=== PATIENT | male | born 1960 | race Caucasian/White ===

== ENCOUNTER 2016-12-30 02:43 | Emergency (ER) | payer OTHER ==
[2016-12-30 02:52] VITALS: BP 130/76; PULSE 66; RESP 18; TEMP 96.9
[2016-12-30] MEDS ORDERED: PROPARACAINE 0.5% OPHTH DROPS 15 ML BTL BOTH EYES STA (02:56)
[2016-12-30] MEDS ORDERED: CIPROFLOXACIN 0.3% OPHTH SOLN 2.5 ML BTL BOTH EYES STA (03:18)
--- NOTE | 2016-12-30 03:28 | ED ---
Eye Problem HPI - General Chief complaint: Eye Problems Stated complaint: eye problem Time Seen by Provider: 12/30/16 02:55 Source: patient, RN notes reviewed, old records reviewed Mode of arrival: ambulatory Limitations: no limitations - History of Present Illness Initial comments: 56-year-old male presents the ED chief complaint of left eye pain. Patient reports he woke up and felt like there is something stabbing in his eye. She reports that he normally wears glasses. Denies any pressure headache or pain behind the eye. She states the eye continues to water and feels like there is something in it. Patient reports that he just sleeps by himself, denies any trauma that he is aware to be eye.Patient denies any recent fever, chills, shortness of breath, chest pain, back pain, abdominal pain, nausea vomiting, numbness or tingling, dysuria or hematuria, constipation or diarrhea, headaches or visual changes, or any other current symptoms - Related Data Home Medications Medication Instructions Recorded Confirmed Multivitamins, Thera [Theragran] 1 each PO DAILY 08/04/14 12/30/16 Olmesartan [Benicar] 20 mg PO DAILY 02/10/16 12/30/16 Previous Rx's Medication Instructions Recorded Ciprofloxacin Ophth Soln [Cipro 1 drops LEFT EYE Q4HR #1 bottle 12/30/16 Ophth Soln] Allergies Allergy/AdvReac Type Severity Reaction Status Date / Time No Known Allergies Allergy Verified 08/05/14 08:47 Review of Systems ROS Statement: Those systems with pertinent positive or pertinent negative responses have been documented in the HPI. ROS Other: All systems not noted in ROS Statement are negative. Past Medical History Past Medical History: Hypertension History of Any Multi-Drug Resistant Organisms: None Reported Past Surgical History: No Surgical Hx Reported Past Psychological History: No Psychological Hx Reported Smoking Status: Former smoker Past Alcohol Use History: Daily Past Drug Use History: None Reported General Exam - General Exam Comments Initial Comments: Is an 56-year-old male. No acute distress. Limitations: no limitations General appearance: alert, in no apparent distress Head exam: Present: atraumatic, normocephalic, normal inspection Eye exam: Present: normal appearance, PERRL, EOMI, conjunctival injection (Left eye conjunctival injection.). Absent: scleral icterus, periorbital swelling ENT exam: Present: normal exam, mucous membranes moist Neck exam: Present: normal inspection. Absent: tenderness, meningismus, lymphadenopathy Respiratory exam: Present: normal lung sounds bilaterally. Absent: respiratory distress, wheezes, rales, rhonchi, stridor Cardiovascular Exam: Present: regular rate, normal rhythm, normal heart sounds. Absent: systolic murmur, diastolic murmur, rubs, gallop, clicks GI/Abdominal exam: Present: soft, normal bowel sounds. Absent: distended, tenderness, guarding, rebound, rigid Extremities exam: Present: normal inspection, full ROM, normal capillary refill. Absent: tenderness, pedal edema, joint swelling, calf tenderness Back exam: Present: normal inspection Neurological exam: Present: alert, oriented X3, CN II-XII intact Psychiatric exam: Present: normal affect, normal mood Skin exam: Present: warm, dry, intact, normal color. Absent: rash Course Vital Signs 12/30/16 02:49 Temperature 96.9 F L Pulse Rate 66 Respiratory 18 Rate Blood Pressure 130/76 O2 Sat by Pulse 96 Oximetry Medical Decision Making - Medical Decision Making This is a 56-year-old male presenting to emergency Department chief complaint of left eye pain for the past hour. He reports that he woke up due to the pain and feels like something is eye. Fluorescein eye exam was performed and shows evidence of a superficial corneal abrasion over the 9 to 3 o'clock position. Patient was informed of this. Visual acuity obtained and is 20/50 of the left eye 20/40 with the right eye. This is uncorrected. He reports he just kind of chronically poor vision in the left eye. 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 Patient was started on ciprofloxacin drops for the corneal abrasion. Discussed of the symptoms continue to worsen patient should follow-up with ophthalmology. Patient agrees to treatment plan will comply. Return parameters were discussed. Disposition Clinical Impression: Corneal abrasion Disposition: HOME SELF-CARE Condition: Good Instructions: Corneal Abrasion (ED) Additional Instructions: Patient advised to follow-up with primary care physician and ophthalmology if symptoms continue persist or worsen within the next 24 hours. Use the eyedrops every 4 hours in the eye. Return to the emergency department if any alarming signs or symptoms occur. Prescriptions: Ciprofloxacin Ophth Soln [Cipro Ophth Soln] 1 drops LEFT EYE Q4HR #1 bottle Referrals: Cash Villanueva III, MD [Primary Care Provider] - 1-2 days Vikki Meyer MD [STAFF PHYSICIAN] - 1-2 days Time of Disposition: 03:26
== END 2016-12-30 03:46 | disposition home or self-care (01) ==
LOC: EC 02:43
DX: S05.02XA Injury of conjunctiva and corneal abrasion without foreign body, left eye, initial encounter (principal); I10 Essential (primary) hypertension; Z87.891 Personal history of nicotine dependence; Z79.899 Other long term (current) drug therapy
CPT/HCPCS: 99283

== ENCOUNTER → 2017-03-03 | Outpatient (CLI) | payer OTHER ==
--- NOTE | 2017-03-03 12:52 | ECHOF ---
Referral Reason:R06.02 sob R07.9 chest pain MEASUREMENTS -------- HEIGHT: 188.0 cm WEIGHT: 115.7 kg BP: IVSd: 1.3 cm (0.6 - 1.1) LVIDd: 4.1 cm (3.9 - 5.3) LVPWd: 1.3 cm (0.6 - 1.1) IVSs: 1.5 cm LVIDs: 1.7 cm LVPWs: 1.5 cm Ao Diam: 3.2 cm (2.0 - 3.7) AV Cusp: 2.4 cm (1.5 - 2.6) LA Diam: 3.4 cm (2.7 - 3.8) MV EXCURSION: 10.933 mm (> 18.000) MV EF SLOPE: 38 mm/s (70 - 150) EPSS: 0.3 cm MV E Berry: 0.63 m/s MV DecT: 140 ms MV A Berry: 0.75 m/s MV E/A Ratio: 0.85 RAP: 5.00 mmHg RVSP: 23.14 mmHg FINDINGS -------- Sinus rhythm. This was a technically good study. The left ventricular size is normal. There is mild concentric left ventricular hypertrophy. Overall left ventricular systolic function is normal with, an EF between 55 - 60 %. The right ventricle is normal in size and function. The left atrium is normal in size. The right atrium is normal in size. The aortic valve is trileaflet, and appears structurally normal. No aortic stenosis or regurgitation. The mitral valve leaflets are mildly thickened. There is trace mitral regurgitation. Trace tricuspid regurgitation present. The right ventricular systolic pressure, as measured by Doppler, is 23.14mmHg. Pulmonic valve appears structurally normal. The aortic root size is normal. The pericardium is normal. CONCLUSIONS -------- 1. Sinus rhythm. 2. The mitral valve leaflets are mildly thickened. 3. There is trace mitral regurgitation. 4. Trace tricuspid regurgitation present. 5. The right ventricular systolic pressure, as measured by Doppler, is 23.14mmHg. 6. Pulmonic valve appears structurally normal. 7. The aortic root size is normal. 8. The pericardium is normal. 9. This was a technically good study. 10. The left ventricular size is normal. 11. There is mild concentric left ventricular hypertrophy. 12. Overall left ventricular systolic function is normal with, an EF between 55 - 60 %. 13. The right ventricle is normal in size and function. 14. The left atrium is normal in size. 15. The right atrium is normal in size. 16. The aortic valve is trileaflet, and appears structurally normal. No aortic stenosis or regurgitation. PRICING DIRECTOR: Dora Harris RDCS
--- NOTE | 2017-03-03 13:56 | EST ---
EXERCISE STRESS AGE: 56 SEX: M HT: 6'4" WT: 255 PROTOCOL: Fady Exercise Stress Test STAGE: IV DURATION OF EXERCISE: 10.14 HEART RATE REST: 74 BLOOD PRESSURE REST: 130/82 MAXIMUM HEART RATE ACHIEVED: 154 MAXIMUM BLOOD PRESSURE: 218/94 85% MPHR: 139 100% MPHR: 163 METS: 11.9 INDICATIONS: Chest pain. CLINICAL INFORMATION: STRESS DATA: Pretesting physical examination showed a heart rate of 74, pressure is 130/82 mmHg. Baseline EKG shows showed sinus mechanism. The patient exercised on the treadmill according to Fady protocol for a total of 10 minutes and 14 seconds and achieved 11.9 METs. Max heart rate was 154, which is 94% of maximum predicted heart rate. Maximum blood pressure was 218/94 mmHg. Clinically, the patient did not have any symptoms of chest pain or discomfort during the testing or in the recovery time. The EKG did not show any evidence of ST or T-wave abnormalities consistent with ischemia. CONCLUSION: 1. Excellent exercise capacity. 2. Normal EKG response to exercise. 3. Essentially normal stress test for this patient. MMODL / IJN: [id number] /
== END | disposition home or self-care (01) ==
LOC: RADNMMAIN 11:04
PROVIDERS: ATTEND Family Medicine
DX: I05.9 Rheumatic mitral valve disease, unspecified (principal)
CPT/HCPCS: 93017; 93306

== ENCOUNTER → 2018-08-03 | Outpatient (CLI) | payer OTHER ==
--- NOTE | 2018-08-04 08:35 | XR ---
EXAMINATION TYPE: XR chest 2V DATE OF EXAM: 08/03/2018 COMPARISON: NONE HISTORY: Dyspnea TECHNIQUE: Frontal and lateral views of the chest are obtained. FINDINGS: Prominent lung volume could be indicative of underlying COPD. Mild prominence of interstiti um is noted. There is no focal air space opacity, pleural effusion, or pneumothorax seen. The cardi ac silhouette size is within normal limits. The osseous structures are intact. There is some bronch ial wall thickening. IMPRESSION: Correlate for reactive airways disease, COPD, bronchitis. There may be a component of in terstitial lung disease.
== END | disposition home or self-care (01) ==
LOC: RADXRMAIN 17:40
PROVIDERS: ATTEND Nurse Practitioner Family
DX: R06.00 Dyspnea, unspecified (principal)
CPT/HCPCS: 71046

== ENCOUNTER → 2018-08-14 | Outpatient (CLI) | payer OTHER ==
--- NOTE | 2018-08-15 07:43 | ECHOF ---
Referral Reason:R06.00 Dyspnea MEASUREMENTS -------- HEIGHT: 190.5 cm WEIGHT: 122.5 kg BP: RVIDd: 3.5 cm (< 3.3) IVSd: 1.2 cm (0.6 - 1.1) LVIDd: 3.9 cm (3.9 - 5.3) LVPWd: 1.2 cm (0.6 - 1.1) IVSs: 1.4 cm LVIDs: 2.4 cm LVPWs: 1.4 cm LAESV Index (A-L): 20.90 ml/m Ao Diam: 3.5 cm (2.0 - 3.7) AV Cusp: 2.0 cm (1.5 - 2.6) LA Diam: 3.8 cm (2.7 - 3.8) MV EXCURSION: 15.488 mm (> 18.000) MV EF SLOPE: 43 mm/s (70 - 150) EPSS: 0.2 cm MV E Berry: 0.90 m/s MV DecT: 253 ms MV A Berry: 0.75 m/s MV E/A Ratio: 1.20 RAP: 5.00 mmHg RVSP: 30.57 mmHg FINDINGS -------- Sinus rhythm. This was a technically adequate study. The left ventricular size is normal. There is mild concentric left ventricular hypertrophy. Overa ll left ventricular systolic function is normal with, an EF between 55 - 60 %. The right ventricle is normal in size and function. Normal LA size by volume 22+/-6 ml/m2. The right atrium is normal in size. The aortic valve is trileaflet and appears structurally normal. There is no evidence of aortic regu rgitation. There is no evidence of aortic stenosis. The mitral valve leaflets are mildly thickened. There is trace mitral regurgitation. Mild tricuspid regurgitation present. Right ventricular systolic pressure is normal at < 35 mmHg. There is no evidence of pulmonary hypertension. Trace/mild (physiologic) pulmonic regurgitation. The aortic root size is normal. The ascending aorta is dilated measuring up to 3.8 cm. Normal inferior vena cava with normal inspiratory collapse consistent with estimated right atrial pre ssure of 5 mmHg. There is no pericardial effusion. CONCLUSIONS -------- 1. Sinus rhythm. 2. This was a technically adequate study. 3. The left ventricular size is normal. 4. There is mild concentric left ventricular hypertrophy. 5. Overall left ventricular systolic function is normal with, an EF between 55 - 60 %. 6. Normal LA size by volume 22+/-6 ml/m2. 7. The aortic valve is trileaflet and appears structurally normal. 8. The mitral valve leaflets are mildly thickened. 9. There is trace mitral regurgitation. 10. Mild tricuspid regurgitation present. 11. Right ventricular systolic pressure is normal at < 35 mmHg. 12. There is no evidence of pulmonary hypertension. 13. Trace/mild (physiologic) pulmonic regurgitation. 14. The aortic root size is normal. 15. The ascending aorta is dilated measuring up to 3.8 cm. 16. There is no pericardial effusion. PRINCIPLE SOFTWARE ENGINEER: Esteban Connelly RDCS
== END | disposition home or self-care (01) ==
LOC: RADECHMAIN 15:18
PROVIDERS: ATTEND Family Medicine
DX: I07.1 Rheumatic tricuspid insufficiency (principal)
CPT/HCPCS: 93306

== ENCOUNTER → 2018-09-11 | Outpatient (CLI) | payer OTHER ==
--- NOTE | 2018-09-12 11:51 | US ---
EXAMINATION TYPE: US thyroid st tissue head/neck DATE OF EXAM: 09/11/2018 COMPARISON: NONE CLINICAL HISTORY: E04.9 GOITER. Goiter, difficulty swallowing GLAND SIZE: Right Lobe: 6.4 x 2.0 x 2.4 cm Overall Parenchyma: heterogenous Left Lobe: 5.8 x 2.0 x 2.3 cm Overall Parenchyma: heterogeneous Isthmus Thickness: 0.4 cm NODULES RIGHT: # of nodules measured on right: 0 LEFT: # of nodules measured on left: 0 ISTHMUS: # of nodules measured in the isthmus: 0 Bilateral neck scanned, no evidence of lymphadenopathy. Enlarged, heterogeneous thyroid gland with no evidence of discrete nodule at this time IMPRESSION: Thyroid size as described. Correlate for possible thyroiditis.
== END | disposition home or self-care (01) ==
LOC: RADUSWWP 16:38
PROVIDERS: ATTEND Family Medicine
DX: E04.9 Nontoxic goiter, unspecified (principal)
CPT/HCPCS: 76536

== ENCOUNTER → 2018-09-22 | Outpatient (CLI) | payer OTHER | END | disposition home or self-care (01) | LOC: CPPFTMAIN 11:09 | PROVIDERS: ATTEND Family Medicine | DX: R06.00 Dyspnea, unspecified (principal) | CPT/HCPCS: 94060; 94726; 94729 ==

== ENCOUNTER 2018-09-27 18:38 | Observation (INO) | payer OTHER ==
[2018-09-27] MEDS ORDERED: NITROGLYCERIN SL TABS 0.4 MG TAB SUBLINGUAL STA ×3 (19:00)
[2018-09-27] MEDS ORDERED: ASPIRIN 81 MG PO STA ×2 (19:00→19:30)
--- NOTE | 2018-09-27 19:04 | ED ---
General Adult HPI - General Chief complaint: Chest Pain Stated complaint: chest tightness/syncope Time Seen by Provider: 09/27/18 18:47 Source: patient, RN notes reviewed Mode of arrival: wheelchair Limitations: no limitations - History of Present Illness Initial comments: Patient is a pleasant 58-year-old male presenting to the emergency Department with chest discomfort. Patient did have some mild discomfort this morning while chopping wood. Discomfort seemed to improve. Discomfort returned prior to arrival. Patient states discomfort was 7/10 however has improved to around 5/10. Patient did have a syncopal episode for a couple of seconds prior to arrival. No history of similar symptoms previously. No radiation of discomfort. Patient has felt short of breath since May. No nausea or diaphoresis. Patient did feel lightheaded. - Related Data Home Medications Medication Instructions Recorded Confirmed Albuterol Inhaler [Ventolin Hfa 2 puff INHALATION RT-TID PRN 09/27/18 09/27/18 Inhaler] Budesonide/Formoterol Fumarate 2 puff INHALATION RT-BID 09/27/18 09/27/18 [Symbicort 160-4.5 Mcg Inhaler] Montelukast [Singulair] 10 mg PO HS 09/27/18 09/27/18 Olmesartan/Hydrochlorothiazide 1 tab PO DAILY 09/27/18 09/27/18 [Olmesartan-Hctz 40-25 mg Tab] amLODIPine [Norvasc] 10 mg PO DAILY 09/27/18 09/27/18 Allergies Allergy/AdvReac Type Severity Reaction Status Date / Time No Known Allergies Allergy Verified 09/27/18 19:05 Review of Systems ROS Statement: Those systems with pertinent positive or pertinent negative responses have been documented in the HPI. ROS Other: All systems not noted in ROS Statement are negative. Constitutional: Denies: fever Eyes: Denies: eye pain ENT: Denies: ear pain Respiratory: Reports: as per HPI Cardiovascular: Reports: as per HPI Endocrine: Denies: fatigue Gastrointestinal: Denies: abdominal pain Genitourinary: Denies: dysuria Musculoskeletal: Denies: back pain Skin: Denies: rash Neurological: Denies: weakness Past Medical History Past Medical History: Hypertension History of Any Multi-Drug Resistant Organisms: None Reported Past Surgical History: No Surgical Hx Reported Past Psychological History: No Psychological Hx Reported Smoking Status: Former smoker Past Alcohol Use History: Daily Past Drug Use History: None Reported General Exam Limitations: no limitations General appearance: alert, in no apparent distress Head exam: Present: atraumatic Eye exam: Present: normal appearance, PERRL ENT exam: Present: normal oropharynx Neck exam: Present: normal inspection Respiratory exam: Present: normal lung sounds bilaterally. Absent: chest wall tenderness Cardiovascular Exam: Present: regular rate, normal rhythm Expanded Peripheral pulses: 2+: Radial (R), Radial (L), Posterior Tibialis (R), Posterior Tibialis (L), Dorsalis Pedis (R), Dorsalis Pedis (L) GI/Abdominal exam: Present: soft. Absent: tenderness Extremities exam: Present: normal inspection. Absent: pedal edema, calf tenderness Neurological exam: Present: alert, oriented X3, CN II-XII intact. Absent: motor sensory deficit Psychiatric exam: Present: normal affect, normal mood Skin exam: Present: normal color Course Vital Signs 09/27/18 09/27/18 18:41 20:19 Temperature 98.6 F Pulse Rate 78 72 Respiratory 16 19 Rate Blood Pressure 147/85 121/75 O2 Sat by Pulse 97 98 Oximetry EKG Findings - EKG Comments: EKG Findings:: Sinus rhythm at 78. CA 170. QRS 96. QT 372. QTC 424. Normal axis. Normal QRS. No acute ST change. Medical Decision Making - Medical Decision Making Patient reevaluated and resting comfortably in bed. Discomfort is mild at this point rated 2/10. Patient family updated on results and plan. Case was discu ssed in detail with Dr. Napier, covering for Dr. Villanueva, who will admit. - Lab Data Result diagrams: 09/27/18 19:03 09/27/18 19:03 Lab Results 09/27/18 09/27/18 09/27/18 Range/Units 19:03 19:03 19:03 WBC 5.8 (3.8-10.6) k/uL RBC 4.34 (4.30-5.90) m/uL Hgb 14.0 (13.0-17.5) gm/dL Hct 41.7 (39.0-53.0) % MCV 96.1 (80.0-100.0) fL MCH 32.2 (25.0-35.0) pg MCHC 33.4 (31.0-37.0) g/dL RDW 12.4 (11.5-15.5) % Plt Count 168 (150-450) k/uL Neutrophils % 67 % Lymphocytes % 23 % Monocytes % 4 % Eosinophils % 3 % Basophils % 0 % Neutrophils # 3.9 (1.3-7.7) k/uL Lymphocytes # 1.4 (1.0-4.8) k/uL Monocytes # 0.3 (0-1.0) k/uL Eosinophils # 0.2 (0-0.7) k/uL Basophils # 0.0 (0-0.2) k/uL PT 9.7 (9.0-12.0) sec INR 0.9 (<1.2) APTT 24.8 (22.0-30.0) sec D-Dimer 0.47 (<0.60) mg/L FEU Sodium 136 L (137-145) mmol/L Potassium 3.9 (3.5-5.1) mmol/L Chloride 104 (98-107) mmol/L Carbon Dioxide 19 L (22-30) mmol/L Anion Gap 13 mmol/L BUN 18 (9-20) mg/dL Creatinine 0.98 (0.66-1.25) mg/dL Est GFR (CKD-EPI)AfAm >90 (>60 ml/min/1.73 sqM) Est GFR (CKD-EPI)NonAf 85 (>60 ml/min/1.73 sqM) Glucose 122 H (74-99) mg/dL Calcium 9.4 (8.4-10.2) mg/dL Magnesium 2.0 (1.6-2.3) mg/dL Total Bilirubin 0.5 (0.2-1.3) mg/dL AST 43 (17-59) U/L ALT 47 (21-72) U/L Alkaline Phosphatase 67 (38-126) U/L Troponin I (0.000-0.034) ng/mL NT-Pro-B Natriuret Pep pg/mL Total Protein 7.2 (6.3-8.2) g/dL Albumin 4.5 (3.5-5.0) g/dL 09/27/18 09/27/18 Range/Units 19:03 19:03 WBC (3.8-10.6) k/uL RBC (4.30-5.90) m/uL Hgb (13.0-17.5) gm/dL Hct (39.0-53.0) % MCV (80.0-100.0) fL MCH (25.0-35.0) pg MCHC (31.0-37.0) g/dL RDW (11.5-15.5) % Plt Count (150-450) k/uL Neutrophils % % Lymphocytes % % Monocytes % % Eosinophils % % Basophils % % Neutrophils # (1.3-7.7) k/uL Lymphocytes # (1.0-4.8) k/uL Monocytes # (0-1.0) k/uL Eosinophils # (0-0.7) k/uL Basophils # (0-0.2) k/uL PT (9.0-12.0) sec INR (<1.2) APTT (22.0-30.0) sec D-Dimer (<0.60) mg/L FEU Sodium (137-145) mmol/L Potassium (3.5-5.1) mmol/L Chloride (98-107) mmol/L Carbon Dioxide (22-30) mmol/L Anion Gap mmol/L BUN (9-20) mg/dL Creatinine (0.66-1.25) mg/dL Est GFR (CKD-EPI)AfAm (>60 ml/min/1.73 sqM) Est GFR (CKD-EPI)NonAf (>60 ml/min/1.73 sqM) Glucose (74-99) mg/dL Calcium (8.4-10.2) mg/dL Magnesium (1.6-2.3) mg/dL Total Bilirubin (0.2-1.3) mg/dL AST (17-59) U/L ALT (21-72) U/L Alkaline Phosphatase (38-126) U/L Troponin I <0.012 (0.000-0.034) ng/mL NT-Pro-B Natriuret Pep 109 pg/mL Total Protein (6.3-8.2) g/dL Albumin (3.5-5.0) g/dL - Radiology Data Radiology results: image reviewed (Chest x-ray shows no acute process) Disposition Clinical Impression: Chest pain Disposition: ADMITTED IP TO THIS [facility] Is patient prescribed a controlled substance at d/c from ED?: No Referrals: Cash Villanueva III, MD [Primary Care Provider] - 1-2 days Decision Time: 20:59
[2018-09-27 19:14] LABS: Basophils % (A) 0 %; Eosinophils # (A) 0.2 k/uL (0-0.7); Eosinophils % (A) 3 %; HCT 41.7 % (39.0-53.0); Lymphocytes # (A) 1.4 k/uL (1.0-4.8); Lymphocytes % (A) 23 %; MCH 32.2 pg (25.0-35.0); MCHC 33.4 g/dL (31.0-37.0); MCV 96.1 fL (80.0-100.0); Monocytes # (A) 0.3 k/uL (0-1.0); Monocytes % (A) 4 %; Neutrophils # (A) 3.9 k/uL (1.3-7.7); Neutrophils % (A) 67 %; Platelet Count 168 k/uL (150-450); RBC 4.34 m/uL (4.30-5.90); RDW 12.4 % (11.5-15.5); WBC 5.8 k/uL (3.8-10.6)
[2018-09-27 19:23] LABS: ALT 47 U/L (21-72); AST 43 U/L (17-59); Albumin 4.5 g/dL (3.5-5.0); Alkaline Phosphatase 67 U/L (38-126); Anion Gap 13 mmol/L; Blood Urea Nitrogen 18 mg/dL (9-20); Calcium 9.4 mg/dL (8.4-10.2); Carbon Dioxide 19 mmol/L (22-30); Chloride 104 mmol/L (98-107); Glucose 122 mg/dL (74-99); Potassium 3.9 mmol/L (3.5-5.1); Sodium 136 mmol/L (137-145); Total Bilirubin 0.5 mg/dL (0.2-1.3); Total Protein 7.2 g/dL (6.3-8.2)
[2018-09-27 19:27] LABS: D-Dimer 0.47 mg/L FEU (<0.60); INR 0.9 (<1.2); Partial Thromboplastin Time 24.8 sec (22.0-30.0); Prothrombin Time 9.7 sec (9.0-12.0)
--- NOTE | 2018-09-27 19:35 | XR ---
EXAMINATION TYPE: XR chest 2V DATE OF EXAM: 09/27/2018 COMPARISON: 08/03/2018 HISTORY: Chest pain TECHNIQUE: Frontal and lateral views of the chest are obtained. FINDINGS: Heart and mediastinum are normal. Lungs are clear. Diaphragm is normal. Bony thorax appear s normal. IMPRESSION: Normal chest. No change.
[2018-09-27] MEDS ORDERED: ALBUTEROL NEBULIZED 2.5 MG/3 ML INHALATION PRN (20:54)
[2018-09-27] MEDS ORDERED: THIAMINE 100 MG/ML 2 ML VIAL IM STA (20:55)
[2018-09-27] MEDS ORDERED: LORazepam 2 MG/ML INJ IV PRN ×3 (20:55)
[2018-09-27] MEDS ORDERED: ACETAMINOPHEN TAB 500 MG TAB PO PRN (20:56)
[2018-09-27] MEDS ORDERED: HYDROcodone/APAP 5-325MG 1 EACH TAB PO PRN (20:56)
[2018-09-27] MEDS ORDERED: TEMAZEPAM 15 MG CAP PO PRN (20:56)
[2018-09-27] MEDS ORDERED: HYDROmorphone 0.5 MG/0.5 ML SYRINGE IVP PRN (20:57)
[2018-09-27] MEDS ORDERED: MONTELUKAST 10 MG TAB PO SCH (21:00)
[2018-09-27] MEDS ORDERED: NITROGLYCERIN SL TABS 0.4 MG TAB SUBLINGUAL PRN (21:00)
[2018-09-27] MEDS: PANTOPRAZOLE 40 MG/10 ML VIAL IVP SCH (21:34)
--- NOTE | 2018-09-28 00:03 | HP ---
HISTORY AND PHYSICAL CHIEF COMPLAINT: Chest pain. HISTORY OF PRESENT ILLNESS: This is 58-year-old gentleman with a past medical history of multiple medical problems including hypertension, history of nicotine dependence, history of EtOH being followed by Dr. Villanueva in the outpatient setting, presented with chest pain. The pain was felt in the left side of the anterior chest wall, more like a heaviness, felt initially while chopping wood in the morning and initially subsequently the symptoms seemed to be improving, but because of his symptoms, the patient came to [facility] and was admitted to the hospital for further evaluation and treatment. The patient also had a syncopal episode also. There is no history of radiation of pain or other associated no symptoms. There is no history of fever, rigors or chills. No history of headache. Loss of consciousness or seizures. PAST MEDICAL HISTORY: Hypertension, history of nicotine dependence. It was also noted the patient took over 6 beers yesterday. HOME MEDICATIONS: 1. Norvasc 10 mg daily. 2. Singulair 10 mg q.h.s. 3. Symbicort 160/4.5 two puffs b.i.d. 4. Ventolin HFA 2 puffs every t.i.d. 5. Olmesartan Hydrochlorothiazide 40/25 p.o. daily. ALLERGIES: None. FAMILY HISTORY: No history of heart disease or strokes in the family. SOCIAL HISTORY: Previous history of smoking. Current alcohol use. Intake as mentioned earlier. REVIEW OF SYSTEMS: ENT: No diminished vision. No diminished hearing. CARDIOVASCULAR: As mentioned earlier. RESPIRATORY: As mentioned earlier. GI no nausea or vomiting. no dysuria. NERVOUS SYSTEM: No numbness or weakness. ALLERGY/IMMUNOLOGY: No asthma or hayfever. MUSCULOSKELETAL as mentioned earlier. HEMATOLOGY/ONCOLOGY: No history of anemia. ENDOCRINE: No history of diabetes or hypothyroidism. CONSTITUTIONAL: As mentioned earlier. DERMATOLOGY: Negative. RHEUMATOLOGY: Negative. PSYCHIATRY: As mentioned earlier. PHYSICAL EXAMINATION: The patient is alert and oriented times three. Pulse 72, blood pressure 121/75, respiration 19, temperature 98.6, pulse ox 98% on 2 L. HEENT is conjunctivae normal. Oral mucosa moist. NECK is no jugular venous distention. No carotid bruit. No lymph node enlargement. CARDIOVASCULAR: S1, S2 muffled. RESPIRATORY: Breath sounds diminished in the bases. A few scattered rhonchi and crackles. ABDOMEN: Soft, nontender. No mass. Legs no edema. No swelling. NERVOUS SYSTEM: Higher functions as mentioned moves all 4 limbs. No focal motor or sensory deficits. SKIN: No ulcer, rash or bleeding. JOINTS: No active deforming arthropathy. LABS: CBC within normal limits. Sodium 133. ASSESSMENT: 1. Chest pain possible unstable angina, possible gastroesophageal reflux disease. 2. Hyponatremia. 3. History of nicotine dependence. h/o syncope vaso vagal 4. History of ETOH. 5. Hypertension. Labile. 6. Remote history of nicotine dependence. RECOMMENDATIONS AND DISCUSSION: This 58-year-old gentleman who presented with multiple medical issues, we will monitor the patient closely. Continue the current medications, management and symptomatic treatment. We will initiate unstable angina protocol, rule out myocardial infarction, cardiology consultation. Otherwise, [place] protocol. Alcohol withdrawal symptoms. Look for alcohol withdrawal symptoms. Prognosis guarded because of multiple complex medical issues. A copy of dictation forwarded to Dr. Villanueva who is the primary physician. Patient also had apparently a recent stress test. The patient unable to recollect the exact date. We will continue to monitor. Further recommendations to follow. MMODL / IJN: [id number] / MTDD
[2018-09-28] MEDS: NITROGLYCERIN OINT 1 INCH/GM PACKET TOPICAL SCH ×2 (01:07→06:06)
[2018-09-28 07:57] LABS: Basophils % (A) 1 %; Eosinophils # (A) 0.1 k/uL (0-0.7); Eosinophils % (A) 3 %; HCT 40.6 % (39.0-53.0); HGB 14.2 gm/dL (13.0-17.5); Lymphocytes # (A) 1.5 k/uL (1.0-4.8); Lymphocytes % (A) 34 %; MCH 33.9 pg (25.0-35.0); Mean Platelet Volume 8.8; Monocytes # (A) 0.3 k/uL (0-1.0); Monocytes % (A) 7 %; Neutrophils # (A) 2.3 k/uL (1.3-7.7); Neutrophils % (A) 53 %; Platelet Count 142 k/uL (150-450); RBC 4.19 m/uL (4.30-5.90); RDW 13.4 % (11.5-15.5); WBC 4.3 k/uL (3.8-10.6)
[2018-09-28] MEDS ORDERED: SYMBICORT 160-4.5 MCG INHALER INHALATION SCH (08:00)
[2018-09-28 08:08] LABS: Anion Gap 6 mmol/L; Blood Urea Nitrogen 17 mg/dL (9-20); Calcium 9.2 mg/dL (8.4-10.2); Carbon Dioxide 25 mmol/L (22-30); Chloride 106 mmol/L (98-107); Cholesterol 206 mg/dL (<200); Glucose 113 mg/dL (74-99); HDL Cholesterol 76 mg/dL (40-60); LDL Cholesterol,Calculated 107 mg/dL (0-99); Sodium 137 mmol/L (137-145); Triglycerides 115 mg/dL (<150)
[2018-09-28 08:20] VITALS: BMI 33.1
[2018-09-28] MEDS ORDERED: ASPIRIN 325 MG TAB PO SCH (09:00)
[2018-09-28] MEDS ORDERED: HYDROCHLOROTHIAZIDE 25 MG TAB PO SCH (09:00)
[2018-09-28] MEDS ORDERED: amLODIPine 10 MG TAB PO SCH (09:00)
[2018-09-28] MEDS ORDERED: LOSARTAN 50 MG TAB PO SCH (09:00)
--- NOTE | 2018-09-28 10:58 | P.CRDCN ---
History of Present Illness History of present illness: This is a pleasant 58-year-old male past medical history significant for hypertension, obstructive sleep apnea, enlarged thyroid was recently discovered, former nicotine dependence and daily alcohol intake. He denies history of dyslipidemia, coronary artery disease or diabetes mellitus. 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 We have been asked to see him in consultation secondary to chest discomfort and a syncopal episode. He states yesterday he was sitting on the couch and stood up to walk around. He immediately felt the room spinning and had to brace himself on the wall. The next thing he remembers he was waking up on the ground. There was positive loss of consciousness for less than a minute. This was witnessed by family and there was no seizure like activity or loss of bowel/bladder control. Chest prior to passing out he does describe an odd feeling in his chest in the left precordial region. However when he woke up all his symptoms of dizziness and chest pain had subsided. There was no associated nausea, vomiting, palpitations or shortness of breath. Immediately after this happened his blood pressure was checked and he states it was extremely low. He has been up ambulating with no further symptoms of dizziness or chest discomfort. He states since about May of this year he has been having very vague symptoms for which she is und ergoing outpatient workup. Just last week he underwent pulmonary function testing to assess for possible COPD, he had an echocardiogram in July 2018 which revealed preserved LV systolic function with ejection fraction 55-60%. This all started around May when he became acutely short of breath and was extremely hypertensive. His antihypertensive regimen has been adjusted and his blood pressure seem under much better control. EKG reveals sinus mechanism with no acute ST or T wave abnormalities noted. Chest x-ray is negative for an acute cardiopulmonary process. Laboratory data reviewed, WBC 4.3, hemoglobin 14.2, platelets 142, d-dimer 0.47, sodium 137, potassium 4.0, creatinine 1.03, magnesium 2.0, cardiac enzymes negative 3, and T proBNP 109, LDL 107 and HDL 76. Current cardiac medications include almost certain/HCTZ 40/25 mg daily and amlodipine 10 mg daily. He underwent a Fady protocol exercise stress test in 2016 which revealed excellent exercise capacity and no evidence of stress-induced ischemia. At the time of my exam: CONSTITUTIONAL: Denies fever. Denies chills. EYES: Denies blurred vision. Denies vision changes. Denies eye pain. EARS, NOSE, MOUTH & THROAT: Denies headache. Denies sore throat. Denies ear pain. CARDIOVASCULAR: Denies chest pain. Denies shortness of breath. Denies orthopnea. Denies PND. Denies palpitations. RESPIRATORY: Denies cough. GASTROINTESTINAL: Denies abdominal pain. Denies diarrhea. Denies constipation. Denies nausea. Denies vomiting. MUSCULOSKELETAL: Denies myalgias. INTEGUMENTARY: Denies pruitis. Denies rash. NEUROLOGIC: Denies numbness. Denies tingling. Denies weakness. PSYCHIATRIC: Denies anxiety. Denies depression. ENDOCRINE: Denies fatigue. Denies weight change. Denies polydipsia. Denies polyurina. GENITOURINARY: Denies burning, hematuria or urgency with micturation. HEMATOLOGIC: Denies history of anemia. Denies bleeding. Blood pressure 122/70 heart rate 71 afebrile maintaining oxygen saturation on room air GENERAL: This is a 58-year-old male in no apparent distress at the time of my examination. HEENT: Head is atraumatic, normocephalic. Pupils are equal, round. Sclerae anicteric. Conjunctivae are clear. Mucous membranes of the mouth are moist. Neck is supple. There is no jugular venous distention. No carotid bruit is heard. LUNGS: Clear to auscultation no wheezes, rales or rhonchi. No chest wall ten derness is noted on palpation or with deep breathing. HEART: Regular rate and rhythm without murmurs, rubs or gallops. S1 and S2 heard. ABDOMEN: Soft, nontender. Bowel sounds are heard. No organomegaly noted. EXTREMITIES: No evidence of peripheral edema and no calf tenderness noted. VASCULAR: Radial and dorsalis pedis pulses palpated, no evidence of clubbing. NEUROLOGIC: Patient is awake, alert and oriented x3. ASSESSMENT Chest pain associated with syncope. An acute event has been ruled out. No evidence of arrhythmia noted on telemetry tracings. Syncopal episode, possible related to a vasovagal spell. The patient states his blood pressure was low immediately after this happened however there is no clear documentation of this in the medical record. Hypertension Former nicotine dependence Chronic daily alcohol intake PLAN Recent echocardiogram has been reviewed. Perform exercise stress test to assess for ischemic changes or an acute arrhythmia with exertion. Cessation of excessive alcohol intake recommended. Initiate on moderate intensity statin in the form of atorvastatin 40 mg daily. If stress test is normal we recommend application of outpatient event monitor. Thank you kindly for this consultation. Nurse Practitioner note has been reviewed, I agree with a documented findings and plan of care. Patient was seen and examined. Past Medical History Past Medical History: Chest Pain / Angina, Eye Disorder, Hypertension, Respira tory Disorder, Sleep Apnea/CPAP/BIPAP, Syncope, Thyroid Disorder Additional Past Medical History / Comment(s): near sighted, unkown respiratory disorder - recent testing but unknown results, apnea with cpap, enlarged thyroid History of Any Multi-Drug Resistant Organisms: None Reported Past Surgical History: No Surgical Hx Reported Additional Past Surgical History / Comment(s): finger sx - tip cut off, foot sx alcocer neuroma Past Anesthesia/Blood Transfusion Reactions: No Reported Reaction Past Psychological History: No Psychological Hx Reported Smoking Status: Former smoker Past Alcohol Use History: Daily Past Drug Use History: None Reported - Past Family History Father Family Medical History: CVA/TIA Sister(s) Family Medical History: Cancer Medications and Allergies Home Medications Medication Instructions Recorded Confirmed Type Albuterol Inhaler [Ventolin Hfa 2 puff INHALATION RT-TID PRN 09/27/18 09/27/18 History Inhaler] Budesonide/Formoterol Fumarate 2 puff INHALATION RT-BID 09/27/18 09/27/18 History [Symbicort 160-4.5 Mcg Inhaler] Montelukast [Singulair] 10 mg PO HS 09/27/18 09/27/18 History Olmesartan/Hydrochlorothiazide 1 tab PO DAILY 09/27/18 09/27/18 History [Olmesartan-Hctz 40-25 mg Tab] amLODIPine [Norvasc] 10 mg PO DAILY 09/27/18 09/27/18 History Allergies Allergy/AdvReac Type Severity Reaction Status Date / Time No Known Allergies Allergy Verified 09/27/18 19:05 Physical Exam Vitals: Vital Signs Temp Pulse Resp BP Pulse Ox 09/28/18 07:50 97.9 F 71 18 122/70 98 09/28/18 07:31 51 L 09/28/18 07:21 52 L 97 09/28/18 06:00 98.7 F 65 17 108/72 97 09/28/18 05:00 57 L 19 112/86 09/28/18 04:00 56 L 16 93/52 09/28/18 03:00 60 19 118/73 09/28/18 02:00 58 L 120/72 09/28/18 01:00 58 L 18 100/57 97 09/28/18 00:00 60 19 99/53 09/27/18 23:00 66 18 108/73 09/27/18 22:00 65 20 114/73 09/27/18 21:00 71 18 116/74 09/27/18 20:19 72 19 121/75 98 09/27/18 20:00 78 20 103/67 09/27/18 19:00 21 129/82 95 09/27/18 18:57 129/82 09/27/18 18:41 98.6 F 78 16 147/85 97 Intake and Output 09/27/18 09/28/18 09/28/18 22:59 06:59 14:59 Other: Voiding Method Toilet Weight 120.202 kg Results 09/28/18 07:42 09/28/18 07:42 Cardiac Enzymes 09/27/18 09/27/18 09/28/18 Range/Units 19:03 19:03 01:25 AST 43 (17-59) U/L Troponin I <0.012 <0.012 (0.000-0.034) ng/mL 09/28/18 Range/Units 07:42 AST (17-59) U/L Troponin I <0.012 (0.000-0.034) ng/mL Coagulation 09/27/18 Range/Units 19:03 PT 9.7 (9.0-12.0) sec APTT 24.8 (22.0-30.0) sec Lipids 09/28/18 Range/Units 07:42 Triglycerides 115 (<150) mg/dL Cholesterol 206 H (<200) mg/dL HDL Cholesterol 76 H (40-60) mg/dL CBC 09/27/18 09/28/18 Range/Units 19:03 07:42 WBC 5.8 4.3 (3.8-10.6) k/uL RBC 4.34 4.19 L (4.30-5.90) m/uL Hgb 14.0 14.2 (13.0-17.5) gm/dL Hct 41.7 40.6 (39.0-53.0) % Plt Count 168 142 L (150-450) k/uL Comprehensive Metabolic Panel 09/27/18 09/28/18 Range/Units 19:03 07:42 Sodium 136 L 137 (137-145) mmol/L Potassium 3.9 4.0 (3.5-5.1) mmol/L Chloride 104 106 (98-107) mmol/L Carbon Dioxide 19 L 25 (22-30) mmol/L BUN 18 17 (9-20) mg/dL Creatinine 0.98 1.03 (0.66-1.25) mg/dL Glucose 122 H 113 H (74-99) mg/dL Calcium 9.4 9.2 (8.4-10.2) mg/dL AST 43 (17-59) U/L ALT 47 (21-72) U/L Alkaline Phosphatase 67 (38-126) U/L Total Protein 7.2 (6.3-8.2) g/dL Albumin 4.5 (3.5-5.0) g/dL Current Medications Generic Name Dose Route Start Last Admin Trade Name Freq PRN Reason Stop Dose Admin Acetaminophen 500 mg 09/27/18 20:56 Tylenol Tab PO Q6HR PRN Fever and/ or Pain Hydrocodone Bitart/Acetaminophen 1 each 09/27/18 20:56 Alford 5-325 PO Q6HR PRN Pain Albuterol Sulfate 2.5 mg 09/27/18 20:54 09/28/18 07:19 Ventolin Nebulized INHALATION 2.5 mg RT-TID PRN Administration Shortness Of Breath Amlodipine Besylate 10 mg 09/28/18 09:00 Norvasc PO DAILY [facility] Aspirin 325 mg 09/28/18 09:00 Aspirin PO DAILY [facility] Budesonide/Formoterol Fumarate 2 puff 09/28/18 08:00 09/28/18 07:19 Symbicort 160-4.5 Mcg Inhaler INHALATION 2 puff RT-BID JUNIOR Administration Folic Acid 1 mg 09/28/18 12:00 Folic Acid PO DAILY@1200 [facility] Hydrochlorothiazide 25 mg 09/28/18 09:00 Hydrodiuril PO DAILY [facility] Hydromorphone HCl 0.5 mg 09/27/18 20:57 Dilaudid IVP Q6HR PRN Severe Pain Lorazepam 1 mg 09/27/18 20:55 Ativan IV Q2HR PRN CIWA 8 or 9 Lorazepam 1 mg 09/27/18 20:55 Ativan IV Q1HR PRN CIWA 10 to 15 Lorazepam 2 mg 09/27/18 20:55 Ativan IV 09/29/18 20:56 Q10M PRN CIWA 16 or higher Losartan Potassium 150 mg 09/28/18 09:00 Cozaar PO DAILY [facility] Montelukast Sodium 10 mg 09/27/18 21:00 09/27/18 21:35 Singulair PO 10 mg HS JUNIOR Administration Multivitamins 1 each 09/28/18 12:00 Theragran PO DAILY@1200 [facility] Nitroglycerin 1 inch 09/28/18 00:00 09/28/18 06:06 Nitro-Bid Oint TOPICAL 1 inch Q6HR JUNIOR Administration Nitroglycerin 0.4 mg 09/27/18 21:00 Nitrostat SUBLINGUAL Q5M PRN Chest Pain Pantoprazole Sodium 40 mg 09/27/18 21:00 09/27/18 21:34 Protonix IVP 40 mg DAILY JUNIOR Administration Sodium Chloride 10 ml 09/27/18 21:00 09/27/18 21:38 Saline Flush IV 10 ml BID JUNIOR Administration Temazepam 15 mg 09/27/18 20:56 Restoril PO HS PRN Insomnia Intake and Output 09/27/18 09/28/18 09/28/18 22:59 06:59 14:59 Other: Voiding Method Toilet Weight 120.202 kg 09/28/18 07:42 09/28/18 07:42
[2018-09-28] MEDS ORDERED: ATORVASTATIN 40 MG TAB PO SCH (11:00)
[2018-09-28] MEDS ORDERED: MULTIVITAMINS, THERA 1 EACH TAB PO SCH (12:00)
[2018-09-28] MEDS ORDERED: FOLIC ACID 1 MG TAB PO SCH (12:00)
[2018-09-28 12:42] VITALS: BP 153/83; PULSE 77; RESP 16; TEMP 98.4
[2018-09-28] MEDS: PANTOPRAZOLE 40 MG/10 ML VIAL IVP SCH (12:50)
--- NOTE | 2018-09-28 13:21 | EST ---
EXERCISE STRESS DATE OF SERVICE: 09/28/2018 AGE: 58 SEX: Male HT: 6'3" WT: 266 PROTOCOL: Fady STAGE: III DURATION OF EXERCISE: 9 minutes HEART RATE REST: 66 BLOOD PRESSURE REST: 134/88 MAXIMUM HEART RATE ACHIEVED: 151 MAXIMUM BLOOD PRESSURE: 182/80 85% MPHR: 137 100% MPHR: 161 METS: 10.2 INDICATIONS: Chest pain. CLINICAL INFORMATION: Patient was exercised for a total period of 9 minutes. The peak heart rate of 151 was achieved. Maximum blood pressure of 182/80 mmHg was noted. Resting EKG shows normal sinus rhythm with normal NC interval and QRS duration and normal ST-T waves. No ST- segment depression suggestive of ischemia is noted. No dysrhythmias are noted. Patient did not complain of any chest pain during the test. FINAL IMPRESSION: 1. This stress test is not suggestive of ischemia. 2. The patient's exercise tolerance is normal. 3. The patient did not complain of any chest pain during the test. MMODL / IJN: [id number] /
--- NOTE | 2018-09-28 23:14 | DS ---
DISCHARGE SUMMARY DATE OF SERVICE: 09/28/2018. FINAL DIAGNOSES: 1. Chest pain, negative stress test, possibly musculoskeletal. 2. Possible gastroesophageal reflux disease. 3. Hyponatremia. 4. History of nicotine dependence. 5. Syncope possibly vasovagal. 6. History of ETOH. 7. Hypertension labile. 8. Remote history of nicotine dependence. 9. Hyperlipidemia. DISCHARGE DISPOSITION: The patient is being discharged in stable condition with guarded prognosis. Cardiology cleared the patient for discharge. HISTORY OF PRESENT ILLNESS: This 58-year-old gentleman with a past medical history of multiple medical problems being followed by Dr. Villanueva in the outpatient setting was admitted to the hospital with left sided chest pain. Myocardial infarction ruled out. Cardiology saw the patient. Stress test was negative. Patient is being discharged in stable condition with guarded prognosis. On exam, vital signs stable. Cardiac system: S1, S2. Abdomen soft. Central nervous system: No focal deficits. DISCHARGE ADVICE/MEDICATIONS: 1. Diet is cardiac diet. 2. Activity limited until followup. 3. Follow up with Dr. Villanueva in 2-3 days. 4. Follow up with Dr. Miranda as advised. 5. Norvasc 10 mg p.o. daily. 6. Olmesartan. 7. Hydrochlorothiazide 1 p.o. daily. 8. Singular 10 mg q.h.s. 9. Symbicort 160/4.5 two puffs b.i.d. 10.Ventolin p.r.n. 11.Lipitor 40 mg daily. 12.Tylenol p.r.n. Please send a copy this to Dr. Villanueva and Dr. Gracie Miranda's office. Once again, the patient is being discharged in stable condition with guarded prognosis. MMODL / IJN: [id number] /
== END 2018-09-28 15:16 ==
LOC: EC 18:38 → 1SOBS 21:01
PROVIDERS: ADMIT Hospitalist; ATTEND Hospitalist
DX: R07.89 Other chest pain (principal); R55 Syncope and collapse; I10 Essential (primary) hypertension; E87.1 Hypo-osmolality and hyponatremia; G47.33 Obstructive sleep apnea (adult) (pediatric); E78.5 Hyperlipidemia, unspecified; R42 Dizziness and giddiness; E04.9 Nontoxic goiter, unspecified; H57.9 Unspecified disorder of eye and adnexa; Z99.89 Dependence on other enabling machines and devices; H52.10 Myopia, unspecified eye; Z72.89 Other problems related to lifestyle; Z79.51 Long term (current) use of inhaled steroids; Z79.899 Other long term (current) drug therapy; Z87.891 Personal history of nicotine dependence; Z82.3 Family history of stroke; Z80.9 Family history of malignant neoplasm, unspecified
CPT/HCPCS: 96376; 96372; 96374; 99285; 36415; 94640 ×2; 94760; 93005; 93017; 93270; 85379; 83880; 80061; 80053; 80048; 83735; 84484 ×2; 85025 ×2; 85610; 85730; 71046; G0378 ×2; J3411; C9113 ×2

== ENCOUNTER → 2018-10-21 | Outpatient (CLI) | payer OTHER ==
--- NOTE | 2018-10-21 12:00 | CT ---
EXAMINATION TYPE: CT angio chest DATE OF EXAM: 10/21/2018 COMPARISON: CT lumbar spine 06/11/2015 HISTORY: SOB, Tachycardia, Chest pain CT DLP: 548 mGycm Automated exposure control for dose reduction was used. CONTRAST: CTA scan of the thorax is performed with IV Contrast, patient injected with 68 mL of Isovue 370, pulm onary embolism protocol. MIP images are created and reviewed. 3D reconstructed images are created o n an independent workstation and reviewed. FINDINGS: LUNGS: The lungs are grossly clear, there is no concerning parenchymal mass or nodule identified. Mi ld emphysematous changes are present in the upper lobes. There is no pleural effusion or pneumothorax seen. The tracheobronchial tree is patent. AORTA: Is dilated at the ascending aorta, 4 cm MEDIASTINUM: There is satisfactory enhancement of the pulmonary artery and its branches, there is no CT evidence for pulmonary embolism. Pulmonary artery is prominent, correlate for pulmonary artery hy pertension There are no greater than 1 cm hilar or mediastinal lymph nodes. No pericardial effusion is seen. The heart is enlarged. OTHER: Right fifth through seventh rib fractures show probable healing, callus formation, T12 shows anterior wedge compression deformity with loss of minimal superior endplate height minimally, no sign ificant spinal stenosis. Liver shows low attenuation possibly due to hepatic steatosis. IMPRESSION: NO EVIDENT PULMONARY EMBOLISM. CARDIOMEGALY, CORRELATE FOR POSSIBLE PULMONARY ARTERY HYPERTENSION, CO PD. POSSIBLE HEPATIC STEATOSIS. REMOTE FRACTURES DESCRIBED.
== END | disposition home or self-care (01) ==
LOC: RADCTMAIN 10:44
PROVIDERS: ATTEND Family Medicine
DX: I51.7 Cardiomegaly (principal); R07.9 Chest pain, unspecified
CPT/HCPCS: 71275; Q9967

== ENCOUNTER 2018-12-11 13:00 | Day surgery (SDC) | payer OTHER ==
[2018-12-10 10:36] VITALS: BMI 31.2
[~2018-12-11 13:00] MED LIST: LACTATED RINGERS 1,000 ML IV SCH; LIDOCAINE 1% 20 ML VIAL (10MG/ML) FOR IV START INTRADERMA PRN
[2018-12-11 13:41] VITALS: RESP 16; TEMP 97.6
[2018-12-11] MEDS ORDERED: PROPOFOL 10 MG/ML 20 ML VIAL IV ONE (13:54)
--- NOTE | 2018-12-11 14:20 | P.PCN ---
Date of Procedure: 12/11/18 Procedure(s) Performed: BRIEF HISTORY: Patient is a 58-year-old pleasant white male scheduled for an elective colonoscopy as a part of value should of prior history of colon polyps. Last colonoscopy was 5 years ago. PROCEDURE PERFORMED: Colonoscopy. PREOPERATIVE DIAGNOSIS: History of colon polyps. IV sedation per Anesthesia. PROCEDURE: After informed consent was obtained, the patient, was brought into the endoscopy unit. IV sedation was administered by Anesthesia under continuous monitoring. Digital rectal examination was normal. Initially the Olympus CF-160 flexible video colonoscope was then inserted in the rectum, gradually advanced into the cecum without any difficulty. Careful examination was performed as the scope was gradually being withdrawn. Ileocecal valve and the appendiceal orifice were visualized and appeared normal. Prep was excellent. Mucosa of the cecum, ascending colon, transverse colon, descending colon, sigmoid colon, and rectum appeared normal. Scattered sigmoidal diverticulosis seen. Retroflexion was performed in the rectum and grade 2 internal hemorrhoids were seen. The patient tolerated the procedure well. IMPRESSION: Normal-appearing colon from rectum to cecum with no evidence of colorectal neoplasia Scattered sigmoid diverticulosis Grade 2 internal hemorrhoids. RECOMMENDATIONS: Findings of this examination were discussed with the patient as well as his family. He was advised to have a repeat surveillance colonoscopy in 5 years from now because of colon polyps.
[2018-12-11 14:41] VITALS: BP 113/75; PULSE 75
== END 2018-12-11 14:49 | disposition home or self-care (01) ==
LOC: ORWHC2ENDO 13:00
PROVIDERS: ATTEND Internal Medicine Gastroenterology
DX: Z12.11 Encounter for screening for malignant neoplasm of colon (principal); Z86.010 Personal history of colon polyps; K57.30 Diverticulosis of large intestine without perforation or abscess without bleeding; K64.1 Second degree hemorrhoids; I10 Essential (primary) hypertension; J45.909 Unspecified asthma, uncomplicated; G47.33 Obstructive sleep apnea (adult) (pediatric); Z99.89 Dependence on other enabling machines and devices; Z79.51 Long term (current) use of inhaled steroids; Z79.899 Other long term (current) drug therapy
CPT/HCPCS: 45378; J2704

== ENCOUNTER → 2020-10-26 | Outpatient (CLI) | payer OTHER ==
--- NOTE | 2020-10-26 11:35 | CTL ---
EXAMINATION TYPE: CT Low Dose Lung DATE OF EXAM ORDERED: 10/26/2020 HISTORY: USP tobacco use. Lung cancer screening CT DLP: 100.[address] CTDI: 5.48 mGy Automated exposure control for dose reduction was used. SCREENING VISIT: Initial study COMPARISON: CTA chest October 21, 2018 TECHNIQUE: Low dose computed tomography scan was performed through the chest at 1 mm thick sections a nd reconstructed images in the coronal plane at [address] DIAGNOSTIC QUALITY: Limited, but interpretable FINDINGS: LUNG NODULES: Present, detailed below: Stable 3 to 4 mm anterior right mid nodule axial image 170. Stable 3 mm right mid lung nodule laterally axial image 120. Stable 5.7 x 4.9 mm lateral right lower lobe nodule axial image 226. A few additional scattered 3 mm or smaller nodules are felt present. LUNGS: COPD: Severity: Mild Fibrosis: Severity: None Lymph nodes: None Other findings: None RIGHT PLEURAL SPACE: Effusion: None Calcification: None Thickening: None Pneumothorax: None LEFT PLEURAL SPACE: Effusion: None Calcification: None Thickening: None Pneumothorax: None HEART: Heart Size: Normal Coronary calcification: None Pericardial effusion: None OTHER FINDINGS: Upper abdomen: Artifact degradation. Bony thorax: Prominent Schmorl most superior T12 endplate redemonstrated. Slight scoliotic curvature upper thoracic spine. Supraclavicular region: None. Other: Prominent pulmonary arteries redemonstrated and stable. Adjacent ascending aorta measures up t o 4.1 cm in diameter stable. IMPRESSION: Stable small nodules. No new or enlarging greater than [address] LUNG RAD AND CT CHEST RECOMMENDATION: Lung-Rad 2 Benign Appearance or Behavior: Continue annual sc reening with LDCT in 12 months. S Modifier (other clinically significant findings): S There is stable 4.1 cm ascending aortic aneurysm.
== END | disposition home or self-care (01) ==
LOC: RADCTMAIN 09:30
PROVIDERS: ATTEND Family Medicine
DX: Z12.2 Encounter for screening for malignant neoplasm of respiratory organs (principal); R91.1 Solitary pulmonary nodule; Z87.891 Personal history of nicotine dependence
CPT/HCPCS: 71271

== ENCOUNTER 2021-01-16 11:07 | Day surgery (SDC) | payer OTHER ==
[2021-01-10 15:41] VITALS: BMI 34.0
[~2021-01-16 11:07] MED LIST changes: +ALPRAZolam 0.25 MG TAB PO PRN; +ALPRAZolam 0.5 MG TAB PO PRN; +ASPIRIN 325 MG TAB PO ONE; +ATORVASTATIN 80 MG TAB PO ONE; +HEPARIN SODIUM,PORCINE 10,000 UNIT in SODIUM CHLORIDE 0.9% 1,000 ML IRRIGATION PRN; +HEPARIN SODIUM,PORCINE 2,500 UNIT in SODIUM CHLORIDE 0.9% 250 ML IRRIGATION PRN; -LACTATED RINGERS 1,000 ML IV SCH; -LIDOCAINE 1% 20 ML VIAL (10MG/ML) FOR IV START INTRADERMA PRN; +NITROGLYCERIN SL TABS 0.4 MG TAB SUBLINGUAL PRN; +SODIUM CHLORIDE 0.9% 1,000 ML in EMPTY BAG 1 BAG IV ONE
[2021-01-16] MEDS ORDERED: ASPIRIN 325 MG TAB PO ONE (11:20)
[2021-01-16 11:30] VITALS: RESP 18; TEMP 99.1
[2021-01-16] MEDS ORDERED: LIDOCAINE 1% INJ 10MG/ML (20 ML MDV) ONE (12:30)
[2021-01-16] MEDS ORDERED: VERAPAMIL 2.5 MG/ML 2 ML AMP ONE (12:30)
[2021-01-16] MEDS ORDERED: HEPARIN SODIUM 1,000 UN/ML (10ML VL) ONE (12:48)
[2021-01-16] MEDS ORDERED: fentaNYL (PF) 50 MCG/ML 2 ML AMP ONE (12:48)
[2021-01-16] MEDS ORDERED: MIDAZOLAM 2 MG/2 ML VIAL IVP ONE (12:56)
[2021-01-16] MEDS ORDERED: fentaNYL (PF) 50 MCG/ML 2 ML AMP IVP ONE (12:56)
[2021-01-16] MEDS ORDERED: LIDOCAINE 1% INJ 10MG/ML (20 ML MDV) SQ ONE (12:57)
[2021-01-16] MEDS: VERAPAMIL SYRINGE (5 MG/10 ML) INTRAARTER ONE ×2 (12:58→13:07)
[2021-01-16] MEDS ORDERED: HEPARIN SODIUM 1,000 UN/ML (10ML VL) IV ONE (13:00)
[2021-01-16] MEDS ORDERED: IV FLUID CONTINUATION 1,000 ML IV ONE (13:06)
[2021-01-16] MEDS ORDERED: IOPAMIDOL-370 125ML BTL INJ ONE (13:07)
--- NOTE | 2021-01-16 13:16 | P.CARDCATH ---
Description of Procedure: PROCEDURES PERFORMED: Left heart catheterization, bilateral coronary angiography INDICATION: Chest pain concerning for unstable angina HISTORY: Patient is a pleasant 60-year-old male with a history of syncope, vertigo, PACs, aortic aneurysm, orthostatic hypotension, hypertension who has been having off-and-on chest pain over the last 2-3 years. This is often worse with exercise and improved with rest and worse over last 2 months in [facility] in for unstable angina. Her for heart catheterization was recommended. CONSENT:I have discussed the risks, benefits and alternative therapies for the above-mentioned procedure and for both sedation/analgesia as well as necessary blood product administration, if indicated, as they pertain to this patient. The patient has indicated understanding and acceptance of the risks and procedures discussed. PROCEDURE: After the risks, benefits and alternatives of the above mentioned procedure explained in detail with the patient, informed consent was obtained. Patient was taken to the catheterization lab and prepped and draped in usual fashion. 1% lidocaine was used to anesthetize the right radial artery. A 6- Iraqi sheath was placed in the right radial artery using modified Seldinger technique. Left coronary angiography was performed with a 5-Iraqi JL 4.0 catheter and right coronary angiography was performed with a 5-Iraqi JR5 catheter in various views. A 5-Iraqi FR5 catheter was inserted into the left ventricle and pressure measurements were obtained. The right radial sheath was removed and a TR band was placed with hemostasis achieved. The patient tolerated the procedure well. Patient was transported back to the post catheterization holding area in stable condition. Conscious Sedation: Patient was monitored under the direct supervision of vision of myself for conscious sedation using Versed and fentanyl for a total duration of 12 minutes HEMODYNAMICS: Aortic: 96/62 LV: 103/1 LVEDP 6 SELECTIVE CORONARY ARTERIOGRAPHY: LEFT MAIN: The left main is a large caliber vessel which bifurcates into the LAD and circumflex. There is no significant stenosis. LEFT ANTERIOR DESCENDING CORONARY ARTERY: LAD is a large caliber vessel which wraps around to the apex. There is no significant stenosis. LEFT CIRCUMFLEX CORONARY ARTERY: Left circumflex is a moderate to large caliber vessel without significant stenosis. It gives off a left PDA and is the dominant vessel RIGHT CORONARY ARTERY: The right coronary artery is a small caliber vessel which gives off an acute marginal branches and is nondominant. FINAL IMPRESSION: 1. Normal coronary arteries as described above. 2. Normal left sided filling pressures PLAN: 1. Aggressive risk factor modification per most recent ACC/AHA guidelines. 2. Follow-up in the office in 1-2 weeks.
[2021-01-16 15:48] VITALS: BP 105/72; PULSE 60
== END 2021-01-16 17:03 | disposition home or self-care (01) ==
LOC: CATHCVL 11:07
PROVIDERS: ATTEND Internal Medicine
DX: I25.10 Atherosclerotic heart disease of native coronary artery without angina pectoris (principal); I10 Essential (primary) hypertension; R42 Dizziness and giddiness
CPT/HCPCS: 93458; C1894; J2250; J2001; J3010; J1644; Q9967

== ENCOUNTER → 2021-11-26 | Outpatient (CLI) | payer OTHER ==
--- NOTE | 2021-11-26 11:11 | CTL ---
EXAMINATION TYPE: CT Low Dose Lung DATE OF EXAM ORDERED: 11/26/2021 HISTORY: Personal history of tobacco use. Lung cancer screening CT DLP: 147.[address] CTDI: 4.00 mGy Automated exposure control for dose reduction was used. SCREENING VISIT: Follow-up COMPARISON: CT Low Dose Lung 10/26/2020. TECHNIQUE: Low dose computed tomography scan was performed through the chest at 1 mm thick sections a nd reconstructed images in multiple planes at 1 mm and [address] DIAGNOSTIC QUALITY: Satisfactory FINDINGS: LUNG NODULES: Stable 3 mm anterior right mid nodule (series 4, image 154). Stable 5 mm right lower lo be nodule (series 4, image 197). Stable left lower lobe 4 mm pulmonary nodule (series 4, image 154). Punctate calcified granuloma within the right upper lobe. No definitive new or enlarging pulmonary no dules. LUNGS: COPD: Severity: Mild Fibrosis: Severity: None Lymph nodes: None Other findings: None RIGHT PLEURAL SPACE: Effusion: None Calcification: None Thickening: None Pneumothorax: None LEFT PLEURAL SPACE: Effusion: None Calcification: None Thickening: None Pneumothorax: None HEART: Heart Size: Normal Coronary Calcification: Minimal Pericardial Effusion: None OTHER FINDINGS: Upper abdomen: None Bony thorax: Remote right-sided rib fractures. Anterior wedging of the T12 vertebral body with superi or endplate deformity demonstrated. Slight scoliotic curvature of the upper thoracic spine. Supraclavicular region: None Other: Prominent pulmonary artery is redemonstrated and stable. Adjacent ascending aorta measures up to 4.4 cm in diameter which is slightly increased from prior examination when it measured 4.1 cm. IMPRESSION: Stable small nodules. No new or enlarging greater than [address] LUNG RAD AND CT CHEST RECOMMENDATION: Lung-Rad 2 Benign Appearance or Behavior: Continue annual sc reening with LDCT in 12 months. S Modifier (other clinically significant findings): S-minimal increase in size of 4.4 cm ascending ao rtic aneurysm.
== END | disposition home or self-care (01) ==
LOC: RADCTMAIN 09:37
PROVIDERS: ATTEND Family Medicine
DX: R91.8 Other nonspecific abnormal finding of lung field (principal); Z87.891 Personal history of nicotine dependence
CPT/HCPCS: 71271

== ENCOUNTER → 2021-12-06 | Outpatient (CLI) | payer OTHER ==
--- NOTE | 2021-12-06 08:56 | CT ---
EXAMINATION TYPE: CT chest wo con CT DLP: 236 mGycm, Automated exposure control for dose reduction was used. DATE OF EXAM: 12/06/2021 7:25 AM COMPARISON: CT chest 10/21/2018, low-dose 11/26/2021 CLINICAL INDICATION:Male, 61 years old with history of J84.9 ILD; Difficulty in breathing. TECHNIQUE: Interstitial lung disease protocol with thick thick slices axial images were obtained thro [facility] the chest. Additional prone imaging was utilized. Contrast used: none Oral contrast used: none. FINDINGS: LUNGS/ PLEURA: There is no evidence of interstitial thickening, significant groundglass opacity, rell ycombing or architectural distortion in the lungs. No bronchiectasis. No acute area of infiltrative o r consolidative change. Pulmonary nodules stable compared to 11/26/2021. AIRWAY: Patent and unremarkable. HEART: There is mildly enlarged for size. Mild coronary artery atherosclerosis. MEDIASTINUM: No gross evidence of adenopathy. VASCULATURE: Stable ascending thoracic aorta dilation up to 4.4 cm. MUSCULOSKELETAL: No acute osseous abnormalities. Multiple remote appearing right-sided rib fractures are identified. SOFT TISSUES/LYMPH NODES: Unremarkable. LOWER NECK: No significant findings. UPPER ABDOMEN: No significant findings. IMPRESSION: 1. No evidence for interstitial lung disease 2. Please see dedicated CT lung cancer screening 11/26/2021 for findings related pulmonary nodules.
== END | disposition home or self-care (01) ==
LOC: RADCTMAIN 06:47
PROVIDERS: ATTEND Internal Medicine Critical Care Medicine
DX: R91.8 Other nonspecific abnormal finding of lung field (principal)
CPT/HCPCS: 71250

== ENCOUNTER → 2023-03-21 | Outpatient (CLI) | payer OTHER ==
--- NOTE | 2023-03-21 12:14 | CTL ---
EXAMINATION TYPE: CT Low Dose Lung DATE OF EXAM ORDERED: 03/21/2023 HISTORY: . Lung cancer screening CT DLP: 168.[address] CTDI: 4.1 mGy Automated exposure control for dose reduction was used. SCREENING VISIT: COMPARISON: 12/06/2021, 10/26/2020 TECHNIQUE: Low dose computed tomography scan was performed through the chest at 1 mm thick sections a nd reconstructed images in multiple planes at 1 mm and [address] DIAGNOSTIC QUALITY: Satisfactory FINDINGS: Biapical pleural thickening. There is a 2 mm noncalcified right upper lobe image 130. There is a stable 5 mm nodule image 227 right lower lobe. Stable 2 mm nodule right upper lobe axial image 179. Stable 4 mm nodule left lower lobe axial image 219. No consolidative pneumonia or pleural effusion. No pneumothorax. Subcentimeter benign appearing nodul e left adrenal gland most likely related to adenoma. Small hiatal hernia. A trace of pericardial fluid with atherosclerotic change aorta. Coronary artery calcifications. No pa thologic mediastinal or hilar lymphadenopathy. Trace of gynecomastia. Emphysematous changes noted. There is a 4.3 cm ascending aortic aneurysm. Hypertrophic and degenerative changes of the spine. Chronic appearing superior endplate deformity inv olving the thoracolumbar junction. IMPRESSION: 1. COPD with stable 5 mm less benign-appearing pulmonary nodules. 2. There is a 4.3 cm ascending aortic aneurysm. CT LUNG RAD AND CT CHEST RECOMMENDATION: Lung-Rad 2 Benign Appearance or Behavior: Continue annual sc reening with LDCT in 12 months.
== END | disposition home or self-care (01) ==
LOC: RADCTMAIN 09:26
PROVIDERS: ATTEND Internal Medicine
DX: Z12.2 Encounter for screening for malignant neoplasm of respiratory organs (principal); I71.21 Aneurysm of the ascending aorta, without rupture; J44.9 Chronic obstructive pulmonary disease, unspecified; R91.1 Solitary pulmonary nodule; Z87.891 Personal history of nicotine dependence
CPT/HCPCS: 71271

== ENCOUNTER → 2023-04-09 | Outpatient (CLI) | payer OTHER ==
--- NOTE | 2023-04-09 14:55 | US ---
EXAMINATION TYPE: US thyroid st tissue head/neck DATE OF EXAM: 04/09/2023 COMPARISON: 09/11/2018 CLINICAL INDICATION: Male, 62 years old with history of E04.1 thyroid nodule; GLAND SIZE: Right Lobe: 6.4 x 2.2 x 2.5 cm Overall Parenchyma: homogeneous Left Lobe: 7.1 x 1.5 x 2.2 cm Overall Parenchyma: Slightly heterogeneous. Isthmus Thickness: 0.3 cm NODULES RIGHT: # of nodules measured on right: 1 1. 0.9 X 0.5 x 0.6 cm, lower lateral, solid or almost completely solid, hypoechoic TR 4 nodule, whi ch is wider than tall, with ill-defined margins, with echogenic foci. Prior size: not seen on previous LEFT: # of nodules measured on left: 0 ISTHMUS: # of nodules measured in the isthmus: 0 Bilateral neck scanned, no evidence of lymphadenopathy. IMPRESSION: Thyromegaly suggesting goiter. There is a solitary 9 mm TR for nodule on the right not clearly seen i 2018. It can be reassessed at follow-up.
== END | disposition home or self-care (01) ==
LOC: RADUSWWP 13:23
PROVIDERS: ATTEND Internal Medicine
DX: E04.1 Nontoxic single thyroid nodule (principal)
CPT/HCPCS: 76536

== ENCOUNTER 2023-04-16 11:12 | Day surgery (SDC) | payer OTHER ==
[2023-04-15 09:32] VITALS: BMI 35.9
[~2023-04-16 11:12] MED LIST changes: -ALPRAZolam 0.25 MG TAB PO PRN; -ALPRAZolam 0.5 MG TAB PO PRN; -ASPIRIN 325 MG TAB PO ONE; -ATORVASTATIN 80 MG TAB PO ONE; +ATROPINE SULFATE 0.4 MG/ML 1 ML VIAL IM ONE; -HEPARIN SODIUM,PORCINE 10,000 UNIT in SODIUM CHLORIDE 0.9% 1,000 ML IRRIGATION PRN; -HEPARIN SODIUM,PORCINE 2,500 UNIT in SODIUM CHLORIDE 0.9% 250 ML IRRIGATION PRN; +LACTATED RINGERS 1,000 ML IV SCH; +LIDOCAINE 1% (10MG/ML) FOR IV START INTRADERMA PRN; -NITROGLYCERIN SL TABS 0.4 MG TAB SUBLINGUAL PRN; -SODIUM CHLORIDE 0.9% 1,000 ML in EMPTY BAG 1 BAG IV ONE
[2023-04-16 12:07] VITALS: TEMP 97.9
[2023-04-16] MEDS ORDERED: KETAMINE 10 MG/ML 20 ML VIAL ONE (12:41)
[2023-04-16] MEDS ORDERED: MIDAZOLAM 2 MG/2 ML VIAL ONE (12:41)
[2023-04-16] MEDS ORDERED: LIDOCAINE 1% INJ 10MG/ML (20 ML MDV) ONE (12:41)
[2023-04-16] MEDS ORDERED: PROPOFOL 10 MG/ML 20 ML VIAL IV ONE (12:41)
[2023-04-16] MEDS ORDERED: fentaNYL (PF) 50 MCG/ML 2 ML AMP ONE (12:41)
[2023-04-16] MEDS ORDERED: LIDOCAINE 2% INJ 20 MG/ML INTRATRACH ONE (12:55)
[2023-04-16 13:41] VITALS: BP 147/89; PULSE 88; RESP 15
--- NOTE | 2023-04-16 19:14 | PCN ---
PROCEDURE NOTE This is a Pulmonary/Critical Care Procedure Note. PROCEDURES PERFORMED: Airway examination, bronchoscopy, bronchoalveolar lavage, and therapeutic lavage. FIRST DECATING MACHINE OPERATOR: Dr. Tran Mtz. The patient's procedure took place in room [facility]. PREOPERATIVE DIAGNOSES: 1. Foreign body sensation. 2. Retained secretions. 3. Tracheobronchomalacia. POSTOPERATIVE DIAGNOSES: 1. Foreign body sensation. 2. Retained secretions. 3. Tracheobronchomalacia. ANESTHESIA PROVIDED: General anesthesia. The patient was being fully monitored during the procedure. DESCRIPTION OF PROCEDURE: Again, there were informed consent and universal time-out. After the patient was adequately sedated and being fully monitored, the bronchoscope was inserted through the left nostril. It passed through the left nasopharynx into the oropharynx. The hypopharynx was identified. The hypopharyngeal structures all looked relatively normal including anterior commissure, true cords, false cords, arytenoids - right and left, piriform sinuses - right and left, valleculae, and epiglottis. One thing I would say about the hypopharyngeal area, that was very crowded. The patient appeared to sort of obstruct, and it was so difficult to get the bronchoscope through the glottic opening after topicalization. Once the bronchoscope passed through the glottic opening into the trachea, there was a moderate degree of tracheomalacia. The patient's trachea was quite collapsible, especially the membranous trachea. There were some secretions noted throughout the trachea. They were suctioned without difficulty. The tracheal cuauhtemoc was sharp. Next, after topicalization of the right and left mainstem, the right upper lobe and its 3 segments, right middle lobe and its 2 segments, right lower lobe and its 5 segments, left upper lobe proper and its 2 segments, lingula and its 2 segments, and left lower lobe and its 4 segments were all evaluated. Again, there was a fair amount of bronchomalacia. It was noted that there was no mass or lesion noted. There were some secretions noted throughout. The mucosa was mildly inflamed. There was mild erythema/hyperemia of the airways. Next, the bronchoscope was wedged into the right middle lobe. We did a formal BAL. 30 mL of fluid was recovered. It will be sent to the laboratory for analysis. There was no bleeding. The patient tolerated the procedure well, and the bronchoscope was withdrawn. The patient will be recovered. There was no immediate complication. MMODL / IJN: [id number] /
[2023-04-17 05:56] LABS: Appearance,BF Blood Tinged (Clear); RBC, Body Fluid 6100 /UL (0-2000)
[2023-04-17 10:37] LABS: Nucleated Cells, Body Fluid 250 /UL
== END 2023-04-16 13:37 | disposition home or self-care (01) ==
LOC: ORWHC2ENDO 11:12
PROVIDERS: ATTEND Internal Medicine Critical Care Medicine
DX: J98.09 Other diseases of bronchus, not elsewhere classified (principal); I25.10 Atherosclerotic heart disease of native coronary artery without angina pectoris; I10 Essential (primary) hypertension; E78.5 Hyperlipidemia, unspecified; G47.33 Obstructive sleep apnea (adult) (pediatric); J44.9 Chronic obstructive pulmonary disease, unspecified; E07.9 Disorder of thyroid, unspecified; E66.01 Morbid (severe) obesity due to excess calories; Z79.52 Long term (current) use of systemic steroids; Z79.899 Other long term (current) drug therapy; Z88.6 Allergy status to analgesic agent; Z88.8 Allergy status to other drugs, medicaments and biological substances
CPT/HCPCS: 31624 ×2; 88108; 88305; 89050; 87070; 87205; 87116; 87102; 87206; J2001 ×2; J2250; J0461; J3010; J2704

== ENCOUNTER → 2023-05-05 | Outpatient (CLI) | payer OTHER ==
--- NOTE | 2023-05-21 01:46 | SLS ---
SLEEP STUDY This is a home sleep study for sleep apnea. HISTORY OF PRESENT ILLNESS: A 62-year-old male patient with known history of tracheobronchomalacia/COPD along with hypertension, hyperlipidemia, and history of a goiter. The patient is undergoing a home sleep study to be evaluated for obstructive sleep apnea. PERTINENT PHYSICAL FINDINGS: The patient's weight is 307, height is 6 feet 4 inches, and body mass index is 37.4. TECHNICAL DESCRIPTION: The [email or web address] system was used to complete this home sleep study. This is a type 3 home sleep study. The total recording duration was 6 hours and 17 minutes. The recording started at 9 p.m., ended at 3:18 a.m. There was a total of 6 hours of flow monitoring and 5 hours and 44 minutes of oxygen saturation monitoring. RESULTS: The respiratory count showed a total of 49 obstructive apneas and 56 obstructive hypopneas and the resulting apnea-hypopnea index was 17, consistent with moderately severe disease. OXYGENATION ANALYSIS: The lowest pulse ox was 76%. Average pulse ox at nighttime was 91%. Baseline pulse ox at room air when awake was 98%. The patient encountered oxygen desaturation. The patient spent approximately 1 hour and 23 minutes of sleep time below pulse ox of 89%. CARDIAC SUMMARY: Average heart rate was 62, minimum heart rate was 42, maximum heart rate was 219. IMPRESSION: 1. Moderately severe obstructive sleep apnea with an AHI of 17. 2. Nocturnal oxygen desaturation secondary to obstructive sleep apnea. 3. Chronic obstructive pulmonary disease/tracheobronchomalacia. 4. Hypertension. 5. Hyperlipidemia. 6. History of goiter. PLAN: We will discuss findings with the patient. We will recommend CPAP therapy. The patient will be set up to undergo an in-lab CPAP titration regarding symptomatic obstructive sleep apnea. MMODL / IJN: [id number] /
== END ==
LOC: 3 N SLEEP 13:03
PROVIDERS: ATTEND Internal Medicine Critical Care Medicine
DX: G47.33 Obstructive sleep apnea (adult) (pediatric) (principal); J44.9 Chronic obstructive pulmonary disease, unspecified; I10 Essential (primary) hypertension; G47.36 Sleep related hypoventilation in conditions classified elsewhere; E78.5 Hyperlipidemia, unspecified; E04.9 Nontoxic goiter, unspecified; Z87.891 Personal history of nicotine dependence

== ENCOUNTER → 2023-09-08 | Outpatient (CLI) | payer OTHER ==
--- NOTE | 2023-09-08 19:18 | CT ---
EXAMINATION TYPE: CT brain wo con DATE OF EXAM: 09/08/2023 COMPARISON: None HISTORY: fall, tinnitus since fall. r/o concussion CT DLP: 1133.3 mGycm Automated exposure control for dose reduction was used. Findings: The ventricles, basal cisterns and sulci over the convexities are within normal limits and there is n o mass effect or shift of midline structures. No abnormal density is seen throughout the brain parenchyma and there is no acute intra or extra-axia l hemorrhage. The posterior fossa including the brainstem, fourth ventricle and cerebellar pontine angles appear no rmal. Intraorbital contents appear normal and symmetric. There is mild chronic inflammatory change in the maxillary sinuses. The calvarium is intact. IMPRESSION: No significant abnormality seen. There is no acute bleed or mass effect. Mild chronic inflammatory ch bry in the maxillary sinuses.
== END | disposition home or self-care (01) ==
LOC: RADCTMAIN 17:44
PROVIDERS: ATTEND Internal Medicine
DX: H93.19 Tinnitus, unspecified ear (principal); J32.0 Chronic maxillary sinusitis
CPT/HCPCS: 70450

== ENCOUNTER 2023-09-17 19:42 | Outpatient (CLI) | payer OTHER ==
--- NOTE | 2023-09-28 23:54 | P.PCN ---
Date of Procedure: 09/17/23 Operative Findings: CPAP titration summary Date of services 09/17/2023 Pertinent history This is a 63-year-old male patient with a known history of obstructive sleep apnea with an AHI of 18 based on a home sleep study that was done back in 2014. The patient has other comorbidities including COPD and tracheobronchomalacia along with hypertension hyperlipidemia. The patient is coming in to undergo a CPAP titration. Pertinent physical findings The patient has a height of 6 feet and 4 inches a body mass index of 37.5 with a weight of 308 pounds Technical description The patient was studied using a standard complex polysomnography protocol that included recording of the 2 EKG, Central, occipital and frontal EEG, right and left outer canthus EOG, submental EMG, right and left anterior tibialis EMG, respiratory airflow by thermocouple and or pressure/flow transducer, respiratory efforts by abdominal and thoracic PVDF belts, oxygen saturation by cable oximetry. Position by observation synchronized the PSG. Stepwise CPAP titration was done to eliminate obstructive respiratory events equipment used: [employer]. Sleep architecture The total recording duration was 364.5 minutes. The total sleep time was 234.0 minutes. Overall sleep efficiency was 64.2%. The latency to sleep onset was 26.5 minutes. The latency to REM sleep was 121.5 minutes. The sleep architecture was catheterized by 8.8% stage I, 81.2% stage II, 0% stage III and XI 0.5% REM sleep Total arousal index was 3.8 Respiratory analysis The patient was started on CPAP therapy at a pressure of 9 cm of water and pressure was gradually increased by increments of 1 cm to reach a maximum CPAP pressure of 11 cm of water. I carefully reviewed CPAP titration taken and found to patient sleep stage and body position. In general, this was successful titration. All sleep stages were encountered. The patient encountered brief REM. Patient is on various body positions including supine and side wide body position. This was a successful titration as the patient has completed ablation of the obstructive respiratory events without any significant obstructive apneas and hypopneas noted in the oxygenation was maintained above 90% Sleep continuity summary A total of 15 arousals were counted with an index of 3.8. Respiratory arousal index was 0.3 Periodic limb movement activity There was a total of 82. Recommend activity with an index of 21, no arousals Cardiac summary Average heart rate was 56 with a minimum heart rate of 52 and a maximum heart rate of 60 Assessment Obstructive sleep apnea with an AHI of 17.5 with a minimum pulse ox of 76%. The patient underwent successful CPAP titration. COPD/tracheobronchomalacia Hypertension Hyperlipidemia Obesity with a body mass index of 37.5 Plan Will initiate CPAP therapy. Will start the patient on a CPAP pressure of 12 cm of water and the patient is going to be provided an AirFit F20 fullface mask medium size. Will initiate CPAP therapy and the patient will be seen in 30 to 90 days in the office to assess clinical response and compliancy.
== END 2023-09-18 05:15 | disposition home or self-care (01) ==
LOC: 3 N SLEEP 19:42
PROVIDERS: ATTEND Internal Medicine Critical Care Medicine
DX: G47.33 Obstructive sleep apnea (adult) (pediatric) (principal); I10 Essential (primary) hypertension; E66.9 Obesity, unspecified; J44.9 Chronic obstructive pulmonary disease, unspecified; J39.8 Other specified diseases of upper respiratory tract; E78.00 Pure hypercholesterolemia, unspecified; E04.9 Nontoxic goiter, unspecified; Q32.0 Congenital tracheomalacia; Z68.37 Body mass index [BMI] 37.0-37.9, adult; Z79.899 Other long term (current) drug therapy; Z79.51 Long term (current) use of inhaled steroids; Z87.891 Personal history of nicotine dependence
CPT/HCPCS: 95811

== ENCOUNTER → 2023-09-17 | Outpatient (CLI) | payer OTHER ==
[2023-09-17 15:48] LABS: Blood Urea Nitrogen 19.2 mg/dL (9.0-27.0); Calcium 9.8 mg/dL (8.7-10.3); Carbon Dioxide 24.7 mmol/L (21.6-31.8); Chloride 102 mmol/L (96-109); Glucose 117 mg/dL (70-110); Potassium 4.6 mmol/L (3.5-5.5); Sodium 140 mmol/L (135-145)
[2023-09-17 15:54] LABS: Basophils # (A) 0.03 X 10*3/uL (0.00-0.10); Basophils % (A) 0.6 %; Eosinophils # (A) 0.21 X 10*3/uL (0.04-0.35); Eosinophils % (A) 4.2 %; HCT 43.2 % (39.6-50.0); HGB 14.8 g/dL (13.0-17.0); Lymphocytes # (A) 1.38 X 10*3/uL (0.90-5.00); Lymphocytes % (A) 27.5 %; MCH 32.5 pg (27.0-32.0); MCHC 34.3 g/dL (32.0-37.0); MCV 94.9 FL (80.0-97.0); Mean Platelet Volume 11.5 FL (9.5-12.2); Monocytes # (A) 0.51 X 10*3/uL (0.20-1.00); Monocytes % (A) 10.2 %; NRBC Per 100 WBC 0 X 10*3/uL (0.00-0.01); Neutrophils # (A) 2.87 X 10*3/uL (1.80-7.70); Neutrophils % (A) 57.1 %; Platelet Count 174 X 10*3/uL (140-440); RBC 4.55 X 10*6/uL (4.40-5.60); WBC 5.02 X 10*3/uL (4.50-10.00)
== END | disposition home or self-care (01) ==
LOC: LABWHC1 10:08
PROVIDERS: ATTEND Orthopaedic Surgery
DX: Z01.812 Encounter for preprocedural laboratory examination (principal); M75.41 Impingement syndrome of right shoulder
CPT/HCPCS: 36415; 80048; 85025

== ENCOUNTER → 2023-09-27 | Outpatient (CLI) | payer OTHER ==
--- NOTE | 2023-09-27 13:25 | MR ---
EXAMINATION TYPE: MR brain wo/w con DATE OF EXAM: 09/27/2023 12:58 PM CLINICAL INDICATION:Male, 63 years old with history of H93.19 TINNITUS, UNSPECIFIED EAR; PHH, Tinnitu s, christine hearing loss, fall/head injury. COMPARISON: 09/08/2023. TECHNIQUE: Multi planar, multi sequence imaging was performed through the brain including: T1, T2, In version recovery, susceptibility weighted imaging and gradient echo imaging and Diffusion weighted im aging. The patient was then given intravenous contrast and multi planar, T1 fat-saturation images wer e obtained. IV Contrast: 13 cc Gadavist FINDINGS: The mott-white junctions, ventricular system, basal cisterns appear unremarkable. Diffusion-weighted imaging shows no evidence of restricted diffusion to suggest acute/subacute infarct. Intracranial ar terial flow voids are maintained. Midline structures show no abnormality. The susceptibility weighted images do not reveal any evidence for micro-hemorrhage. After administration of gadolinium, no abnor mal enhancement is seen. Arachnoid granulations in the transverse sinuses bilaterally. The bone marrow signal is within normal limits. Paranasal sinuses and mastoid air cells: Mild scattered paranasal sinus disease. Visualized orbits: Orbital contents are intact. IMPRESSION: No evidence of intracranial mass, acute/subacute infarct, or abnormal enhancement.
== END | disposition home or self-care (01) ==
LOC: RADMRIMAIN 11:52
PROVIDERS: ATTEND Internal Medicine
DX: H91.93 Unspecified hearing loss, bilateral (principal); H93.19 Tinnitus, unspecified ear; S09.90XA Unspecified injury of head, initial encounter; W19.XXXA Unspecified fall, initial encounter
CPT/HCPCS: 70553; A9585

== ENCOUNTER 2023-10-02 09:39 | Day surgery (SDC) | payer OTHER ==
--- NOTE | 2023-10-01 13:44 | HP ---
HISTORY AND PHYSICAL DATE OF SCHEDULED SURGERY: 10/02/2023. HISTORY OF PRESENT ILLNESS: Hola Jarrell is a 63-year-old gentleman seen with progressive right shoulder pain. We discussed options, he elected to proceed with right shoulder arthroscopy. Consent was obtained, medical clearance was provided. PAST MEDICAL HISTORY: Hypertension, cardiovascular disease. PAST SURGICAL HISTORY: Noncontributory. DAILY MEDICATIONS: Atorvastatin, furosemide. ALLERGIES: None. SOCIAL HISTORY: Denies tobacco use. PHYSICAL EVALUATION OF RIGHT SHOULDER: Flexion is 90 degrees. Abduction is 80 degrees. External rotation is 20 degrees with significant weakness. Tenderness along the anterior lateral acromion rotator cuff insertion site. Impingement is positive at 80 degrees. Cross-body adduction sign is positive. Drop-arm sign is positive. Distal neurovascular exam is intact. IMAGING STUDIES: Radiographs of the right shoulder revealed a type 2 acromioclavicular joint osteoarthritis and cystic changes of the greater tuberosity as well as a healed humeral head fracture. MRI right shoulder revealed rotator cuff tear, labral tear, healed humeral head fracture, and acromioclavicular joint osteoarthritis. IMPRESSION: 1. Right shoulder impingement with rotator cuff tear. 2. Right shoulder acromioclavicular joint osteoarthritis. 3. Right shoulder labral tear. 4. Healed right humeral head fracture. PLAN: Right shoulder arthroscopy with subacromial decompression, arthroscopic rotator cuff repair, Vaibhav procedure and debridement of labral tear. MMODL / IJN: [id number] /
[~2023-10-02 09:39] MED LIST changes: -ATROPINE SULFATE 0.4 MG/ML 1 ML VIAL IM ONE; +HYDROmorphone 0.5 MG/0.5 ML SYRINGE IVP PRN; -LACTATED RINGERS 1,000 ML IV SCH; +MIDAZOLAM 2 MG/2 ML VIAL IV PRN
[2023-10-02] MEDS: LACTATED RINGERS 1,000 ML IV SCH (09:58)
[2023-10-02] MEDS: DEXAMETHASONE SOD PHOSPHATE 4 MG/ML 1 ML VIAL IV ONE (10:14)
[2023-10-02] MEDS: ONDANSETRON 4 MG/2 ML VIAL IVP ONE (10:14)
[2023-10-02] MEDS: MIDAZOLAM 2 MG/2 ML VIAL IVP ONE (10:20)
--- NOTE | 2023-10-02 10:36 | P.ANPRN ---
Procedure Note - Anesthesia - Nerve Block Performed Right Interscalene Single Time Out Performed: Yes Date of Procedure: 10/02/23 Procedure Start Time: 10:10 Procedure Stop Time: 10:15 Location of Patient: PreOp Indication: Acute Post-Operative Pain, Analgesia, Requested by Surgeon Sedation Type: Sedate with meaningful contact maintained Preparation: Sterile Prep Position: Sitting Needle Types: Pajunk Needle Gauge: 21 Ultrasound used to visualize needle placement: Yes Ultrasound used to observe medication spread: Yes Injectate: 0.5% Ropivacaine (see comment for volume) (Ropiv 20 ml +decadron 4mg. No nerve stimulation @0.5 ma.) Resistance on Injection: Normal Image Stored and Saved: Yes Events: Uneventful and Well Tolerated
[2023-10-02] MEDS: ceFAZolin 3 GM in SODIUM CHLORIDE 0.9% 100 ML IVPB PRN (11:07)
[2023-10-02] MEDS ORDERED: ROCURONIUM 10 MG/ML (5 ML VIAL) IV ONE (11:08)
[2023-10-02] MEDS ORDERED: DEXAMETHASONE SOD PHOSPHATE 4 MG/ML 1 ML VIAL ONE (11:08)
[2023-10-02] MEDS ORDERED: LIDOCAINE 1% INJ 10MG/ML (20 ML MDV) ONE (11:08)
[2023-10-02] MEDS ORDERED: DEXAMETHASONE SOD PHOSPHATE 10 MG/ML 1 ML VIAL ONE (11:08)
[2023-10-02] MEDS ORDERED: NEOSTIGMINE 1 MG/ML 10 ML VIAL ONE (11:08)
[2023-10-02] MEDS ORDERED: GLYCOPYRROLATE 0.2 MG/ML 2 ML VIAL ONE (11:08)
[2023-10-02] MEDS ORDERED: PROPOFOL 10 MG/ML 20 ML VIAL IV ONE (11:08)
[2023-10-02] MEDS ORDERED: ePHEDrine 50 MG/ML 1 ML VIAL ONE (11:08)
[2023-10-02] MEDS ORDERED: ROPIVACAINE 5 MG/ML 30 ML VIAL ONE (11:08)
[2023-10-02] MEDS ORDERED: SUCCINYLCHOLINE CHLORIDE 200 MG/10 ML VIAL IV ONE (11:08)
[2023-10-02] MEDS ORDERED: fentaNYL (PF) 50 MCG/ML 2 ML AMP ONE (11:08)
[2023-10-02] MEDS ORDERED: MIDAZOLAM 2 MG/2 ML VIAL ONE (11:08)
[2023-10-02] MEDS ORDERED: PHENYLEPHRINE 10 MG/ML VIAL ONE (11:08)
[2023-10-02] MEDS: LACTATED RINGERS 1,000 ML IV ONE (12:32)
--- NOTE | 2023-10-02 13:12 | P.OP ---
Date of Procedure: 10/02/23 Preoperative Diagnosis: Right shoulder impingement Postoperative Diagnosis: 1. Right shoulder rotator cuff tear 2. Right shoulder impingement 3. Right shoulder bicipital tendinitis 4. Right shoulder acromioclavicular joint osteoarthritis 5. Right shoulder superficial superior labral tear Procedure(s) Performed: 1. Right shoulder arthroscopic rotator cuff repair 2. Right shoulder arthroscopic subacromial decompression 3. Right shoulder arthroscopic biceps tenodesis 4. Right shoulder arthroscopic Vaibhav procedure 5. Right shoulder arthroscopic debridement labral tear Implants: 5Arthrex 4.75 swivel lock anchors Anesthesia: GETA, regional (Interscalene block) Surgeon: Shubham Cuadra [employer] Structural Designer #1: Dioni Vaz Estimated Blood Loss (ml): 11 Pathology: none sent Condition: stable Disposition: PACU Indications for Procedure: 63-year-old patient seen with progressive right shoulder pain. After having treatment options discussed, he elected to proceed with arthroscopy. Operative Findings: See description of procedure Description of Procedure: Patient underwent an interscalene block by department of anesthesia. The patient was then taken to the operative suite. The patient underwent a general anesthetic by the department of anesthesia. The patient was placed into a lateral position and secured. There was appropriate padding of the bony promi nence. Right shoulder was then prepped and draped in normal sterile orthopedic fashion. We placed the extremity in 10 pounds of longitudinal traction. A posterior incision was now made for a posterior working portal site. The trocar and cannula were inserted into the glenohumeral joint. Arthroscopy was initiated. Spinal needle was now inserted anteriorly, to ascertain the anterior working portal site. An incision was now made in that area, a trocar was inserted followed by a probe. There was hyperemia with mild partial tearing long head biceps tendon. There was a superficial tear involving the superior labrum. There were grade I chondromalacia changes of the glenoid fossa without tears. I debrided out the superficial labral tear. I now decided to proceed with arthroscopic biceps tenodesis. I reduced a cannula through the anterior portal site. I passed a loop and tack type stitch to the biceps tendon. I released the biceps tendon from the superior labral attachment. With the assistance of Vincent BRODERICK I punched a hole at the interval for insertion of an anchor. The suture limb was passed through the eyelet of an Arthrex 4.75 swivel lock anchor. I placed the eyelet into our prepunched hole. I held in position while Vincent BRODERICK tensioned the suture and deployed the anchor with good fixation noted. The residual suture was clipped. We had a stable appearing arthroscopic biceps tenodesis. The residual labrum was probed and was found to be stable. Instruments were removed from the glenohumeral joint. Utilizing the posterior working portal site, the trocar and cannula were inserted into the subacromial space. Arthroscopy initiated. I made an incision 2 fingerbreadths lateral to the acromion. I introduced my trocar followed by my ArthroCare ablator. I now began ablating thick subacromial bursal tissue, which exposed the undersurface of the anterior acromion. There was diminished subacromial space. There was a very prominent anterior acromion. A motorized bur was introduced and a subacromial decompression was performed. I also excised some osteophytes off the inferior aspect of the distal clavicle. The AC joint was visualized and noted to be fairly arthritic. The motorized bur was introduced in the anterior portal site and a Vaibhav procedure was performed without difficulty removing 8 mm of bone off the distal clavicle, decompressing the AC joint nicely. I turned my attention to the rotator cuff. There was a 2.53 cm rotator cuff tear. I debrided the margins getting down to stable tendon tissue. I introduced my motorized bur and abraded the footprint area, getting some petechial bleeding. I now made an accessory portal site off the lateral aspect of the acromion. I punched 2 holes medial for medial row fixation with the assistance of Vincent BRODERICK carefully tapping the punch with a mallet as I held the punch and the camera. I now introduced both anchors into the pre-punched holes and Vincent BRODERICK tapped them with the mallet as I held anchors and the camera. Vincent BRODERICK now screwed the anchors in place a while I held the anchor guide and camera. All 8 limbs of suture were now passed through good bites of rotator cuff tendon. I now punched 2 holes for lateral row fixation again I held the punch and camera while Vincent BRODERICK used a mallet to tap in the punch. We now passed sutures through both anchors and individually I introduced the anchors into the pre-punch holes I held the anchor guide in position with one hand holding the camera with the other hand while Vincent BRODERICK tensioned the sutures and screwed in the anchors one at a time. All residual suture limbs were now clipped. We had good compression of the tendon along the entire footprint. Instruments now removed from the portal sites. All portal sites were approximated with nylon suture. Sterile dressings were applied followed by a shoulder immobilizer. Dioni BRODERICK assisted in this complex case. The patient was awakened, transferred to a bed, and taken to recovery in stable condition.
[2023-10-02 14:09] VITALS: RESP 16; TEMP 97
[2023-10-02 14:11] VITALS: BP 145/80; PULSE 62
== END 2023-10-02 14:40 | disposition home or self-care (01) ==
LOC: OR 09:39
PROVIDERS: ATTEND Orthopaedic Surgery
DX: S43.491A Other sprain of right shoulder joint, initial encounter (principal); M75.101 Unspecified rotator cuff tear or rupture of right shoulder, not specified as traumatic; M75.41 Impingement syndrome of right shoulder; M75.21 Bicipital tendinitis, right shoulder; M19.011 Primary osteoarthritis, right shoulder; I25.10 Atherosclerotic heart disease of native coronary artery without angina pectoris; I10 Essential (primary) hypertension; G89.18 Other acute postprocedural pain; G47.33 Obstructive sleep apnea (adult) (pediatric); E07.9 Disorder of thyroid, unspecified; Z79.899 Other long term (current) drug therapy; Z87.891 Personal history of nicotine dependence; X58.XXXA Exposure to other specified factors, initial encounter
CPT/HCPCS: 64415; 29824; 29826; 29827; 29828; C1713 ×3; J2250; J0330; J1100 ×2; J2710; J0690; J2405; J2001; J3010; J2795; J2704; J2371

== ENCOUNTER → 2023-10-31 | Outpatient (CLI) | payer OTHER ==
--- NOTE | 2023-11-02 17:44 | US ---
EXAMINATION TYPE: US thyroid st tissue head/neck DATE OF EXAM: 10/31/2023 COMPARISON: NONE CLINICAL INDICATION: Male, 63 years old with history of M79.89 OTHER SPECIFIED SOFT TISSUE DISORDERS; Lump on right lateral neck/ shoulder x 4 months. Not painful. TECHNIQUE: Multiple grayscale and color Doppler ultrasound images of the right lateral neck/shoulder area of palpable abnormality were performed. FINDINGS/IMPRESSION: Area of lump scanned. Hypoechoic heterogenous lobulated nonvascular lesion seen measuring 3.3 x 2.9 x 1.1cm. Indistinct margins along the periphery. No corresponding abnormality on the contralateral dilip e. This is nonspecific and could represent a variety of etiologies. Further evaluation with CT neck w ith IV contrast is recommended.
== END | disposition home or self-care (01) ==
LOC: RADUSWWP 07:22
PROVIDERS: ATTEND Internal Medicine
DX: M79.89 Other specified soft tissue disorders (principal)
CPT/HCPCS: 76536

== ENCOUNTER → 2023-11-13 | Outpatient (CLI) | payer OTHER ==
--- NOTE | 2023-11-13 11:22 | CT ---
EXAMINATION TYPE: CT soft tissue neck wo/w con DATE OF EXAM: 11/13/2023 COMPARISON: Ultrasound 10/31/2023 HISTORY: 63-year-old male R2 2.1 rt side neck lump, between neck and shoulder. TECHNIQUE: Contiguous axial scanning of the neck performed without and with IV Contrast, patient inje cted with 100ml mL of Isovue 300. Coronal/sagittal reconstructions performed. CT DLP: 1758.30 mGycm Automated exposure control for dose reduction was used. FINDINGS: There is some fatty proliferation of the supraclavicular and lateral neck fat Located behind the sternocleidomastoid muscles. However, the appearance is relatively symmetric from side to side. Visualized intracranial structures, orbits and globes, and mastoid air cells appear clear. Scattered mild mucosal thickening maxillary sinuses. The nasopharynx appears clear. Punctate 2 mm calcification left palatine tonsils. Oropharynx otherwise appears clear. Epiglottis and prevertebral soft tissues are satisfactory. Glottic and subglottic structures as well as the tracheal column and visualized upper lungs are clear . Mild emphysematous changes noted. There is either an exophytic 1.6 cm solid nodule of the mid left thyroid lobe versus nodular exophyti c parenchyma. Submandibular glands and parotid glands appear satisfactory. Scattered small lymph nodes are present on both sides of the neck. No cervical lymphadenopathy or raffy picious neck masses clearly identified. No osseous destructive process. IMPRESSION: 1. FATTY PROLIFERATION OF THE SUPRACLAVICULAR and left lateral neck fat located behind the sternoclei domastoid muscles. However, the appearance is relatively symmetric from side to side. No palpable mar ker was placed. No suspicious lymphadenopathy or mass is identified. If there is persistent concern, the exam can be reviewed with further directed attention. 2. Either exophytic parenchyma versus a 1.6 cm exophytic solid nodule from the posterior left thyroid lobe. Consider further thyroid ultrasound evaluation. 3. COPD with mild emphysema in the visualized upper lungs.
== END | disposition home or self-care (01) ==
LOC: RADCTMAIN 09:12
PROVIDERS: ATTEND Internal Medicine
DX: R22.1 Localized swelling, mass and lump, neck (principal); J43.9 Emphysema, unspecified
CPT/HCPCS: 70492; Q9967

== ENCOUNTER → 2023-12-16 | Outpatient (CLI) | payer OTHER ==
--- NOTE | 2023-12-16 12:55 | XR ---
EXAMINATION TYPE: XR shoulder limited RT DATE OF EXAM: 12/16/2023 12:17 PM CLINICAL INDICATION:Male, 63 years old with history of R52 pain; [facility] COMPARISON: None TECHNIQUE: XR shoulder limited RT; examined in AP, internally rotated and scapular Y projections. FINDINGS: No evidence of acute osseous pathology, joint dislocation, or soft tissue swelling. The remaining po rtions of the visualized chest are unremarkable. Degeneration changes of the acromion, distal clavic le with osteophyte formation. There is osteophyte formation of the glenoid and humeral head. There is joint space narrowing of glenohumeral joint. IMPRESSION: 1. No acute osseous pathology. 2. Mild shoulder osteoarthrosis.
== END | disposition home or self-care (01) ==
LOC: RADXRMAIN 11:57
PROVIDERS: ATTEND Orthopaedic Surgery
DX: M19.011 Primary osteoarthritis, right shoulder (principal)

== ENCOUNTER 2024-05-25 08:11 | Day surgery (SDC) | payer MEDICARE, BC ==
[~2024-05-25 08:11] MED LIST changes: -HYDROmorphone 0.5 MG/0.5 ML SYRINGE IVP PRN; +LACTATED RINGERS 1,000 ML IV SCH; -MIDAZOLAM 2 MG/2 ML VIAL IV PRN
[2024-05-25 08:53] VITALS: TEMP 98.5
[2024-05-25] MEDS: SODIUM CHLORIDE 0.9% 1,000 ML IV ONE (09:07)
[2024-05-25] MEDS ORDERED: PROPOFOL 10 MG/ML 20 ML VIAL IV ONE (09:44)
[2024-05-25] MEDS ORDERED: LIDOCAINE 1% INJ 10MG/ML (20 ML MDV) ONE (09:44)
--- NOTE | 2024-05-25 09:57 | P.PCN ---
Date of Procedure: 05/25/24 Procedure(s) Performed: BRIEF HISTORY: Patient is a 63-year-old pleasant white male scheduled for an elective colonoscopy as a part of screening for colon cancer and family history of colon cancer. His dad was diagnosed with colon cancer at age 70 PROCEDURE PERFORMED: Colonoscopy with snare polypectomy. PREOPERATIVE DIAGNOSIS: Screening for colon cancer and family history of colon cancer. IV sedation per Anesthesia. PROCEDURE: After informed consent was obtained, the patient, was brought into [facility] endoscopy unit. IV sedation was administered by Anesthesia under continuous monitoring. Digital rectal examination was normal. Initially the Olympus CF-160 flexible video colonoscope was then inserted in the rectum, gradually advanced into the cecum without any difficulty. Careful examination was performed as the scope was gradually being withdrawn. Ileocecal valve and the appendiceal orifice were visualized and appeared normal. Prep was excellent. Mucosa of the cecum, ascending colon, appeared normal. In the transverse colon there was a 6 mm polyp that was removed by cold snare polypectomy. Rest of transverse colon, descending colon, sigmoid colon, and rectum appeared normal. Katter sigmoid diverticulosis. Retroflexion was performed in the rectum and no lesions were seen. The patient tolerated the procedure well. IMPRESSION: 6 mm transverse colon polyp status post cold snare polypectomy Scattered scattered diverticulosis RECOMMENDATIONS: Findings of this examination were discussed with the patient as well as his family.. He was advised to follow-up with the biopsy results and have repeat colonoscopy in 5 years because of the family history of colon cancer
[2024-05-25 10:08] VITALS: RESP 16
[2024-05-25 10:20] VITALS: BP 115/75; PULSE 85
== END 2024-05-25 10:40 | disposition home or self-care (01) ==
LOC: ORWHC2ENDO 08:11
PROVIDERS: ATTEND Internal Medicine Gastroenterology
DX: Z12.11 Encounter for screening for malignant neoplasm of colon (principal); D12.3 Benign neoplasm of transverse colon; I10 Essential (primary) hypertension; E78.5 Hyperlipidemia, unspecified; G47.33 Obstructive sleep apnea (adult) (pediatric); J45.909 Unspecified asthma, uncomplicated; H91.90 Unspecified hearing loss, unspecified ear; I25.10 Atherosclerotic heart disease of native coronary artery without angina pectoris; H57.9 Unspecified disorder of eye and adnexa; E07.9 Disorder of thyroid, unspecified; Z79.51 Long term (current) use of inhaled steroids; Z79.899 Other long term (current) drug therapy; Z80.0 Family history of malignant neoplasm of digestive organs; Z99.89 Dependence on other enabling machines and devices
CPT/HCPCS: 88305; 45385; J2003; J2704

== ENCOUNTER → 2024-06-22 | Outpatient (CLI) | payer MEDICARE, BC ==
--- NOTE | 2024-06-22 08:45 | US ---
EXAMINATION TYPE: US kidneys/renal and bladder DATE OF EXAM: 06/22/2024 COMPARISON: NONE CLINICAL INDICATION: Male, 64 years old with history of N28.9 RENAL INSUFFICIENCY; TECHNIQUE: Grayscale imaging of the bilateral kidneys and urinary bladder: FINDINGS: EXAM MEASUREMENTS: Right Kidney: 11.2 x 6.0 x 5.6 cm Left Kidney: 12.1 x 5.5 x 5.3 cm Difficult and limited study due to patient body habitus Right Kidney: No hydronephrosis or masses seen Left Kidney: No hydronephrosis or masses seen Bladder: wnl Bilateral Jets seen: no IMPRESSION: 1. No suspicious acute renal ultrasound changes. [facility], , 06/22/2024 8:42 AM
== END | disposition home or self-care (01) ==
LOC: RADUSWWP 08:16
PROVIDERS: ATTEND Internal Medicine
DX: N28.9 Disorder of kidney and ureter, unspecified (principal)
CPT/HCPCS: 76770